=== PATIENT | male | born 1985 | race Caucasian/White ===

== ENCOUNTER 2022-09-14 05:47 | Emergency (ER) | payer MEDICAID, SELFPAY ==
--- NOTE | 2022-09-14 | ECG_ITS ---
Test Reason : chest pain Blood Pressure : / mmHG Vent. Rate : 103 BPM Atrial Rate : 103 BPM P-R Int : 140 ms QRS Dur : 116 ms QT Int : 342 ms P-R-T Axes : 018 012 072 degrees QTc Int : 448 ms Poor data quality, interpretation may be adversely affected Sinus tachycardia Minimal voltage criteria for LVH, may be normal variant ( Yang product ) Nonspecific ST and T wave abnormality Abnormal ECG When compared with ECG of 22-JAN-2013 19:37, Questionable change in QRS duration Referred By: Generic ED Physician Electronically Signed By:CARMEN DAVIS
--- NOTE | ~2022-09-14 | XR_ITS ---
EXAMINATION: XR CHEST CLINICAL INFORMATION: Chest pain COMPARISON: January 22, 2013 and January 30, 2012 TECHNIQUE: 2 views of the chest were obtained. FINDINGS: No significant abnormality is noted involving the heart, lungs, mediastinum, bony thorax or soft tissues. XR/XR chest 2V IMPRESSION: No acute disease.
[2022-09-14 05:51] VITALS: BP 191/116; PULSE 120; RESP 18; TEMP 36.6; O2SAT 98; BMI 33.0
[2022-09-14 06:08] VITALS: BP 176/105; PULSE 107; RESP 17; O2SAT 98
[2022-09-14 06:18] VITALS: BP 176/105; PULSE 105
[2022-09-14] MEDS: Nitroglycerin 2 % Oint 1 GM Packet 1 INCH TRANSDERMA (06:18)
--- NOTE | 2022-09-14 06:21 | PC.NURSE ---
Assumed care of pt. Pt ambulated under own power. Pt sts hx of untreated HTN, has had intermittent CP L anterior chest x 24 hours, and associated headaches. Sts came in this am due to inability to tolerate pain in chest and head. Denies other medical history,. Ordered medication administered, will reevaluate per protocols.
[2022-09-14 06:23] LABS: Hematocrit 47.7 % (42.0-52.0); Hemoglobin 16.4 g/dl (14.0-18.0); Mean Corpuscular HGB Conc 34.4 g/dl (31.0-36.0); Mean Corpuscular Hemoglobin 26.6 pg (27.0-33.0); Mean Corpuscular Volume 77.3 fL (80.0-98.0); Mean Platelet Volume 10.4 fL (9.4-12.4); Platelet Count 213 X10*3/uL (160-400); Red Blood Count 6.17 X10*6/uL (4.60-5.80); Red Cell Distribution Width 13.9 % (11.0-16.0); White Blood Count 7.2 X10*3/uL (4.8-10.8)
[2022-09-14 06:38] LABS: Alanine Aminotransferase 27 U/L (0-40); Albumin Level 4.1 g/dL (3.5-5.0); Alkaline Phosphatase 83 U/L (39-117); Anion Gap 18 (12-20); Aspartate Amino Transferase 21 U/L (5-37); Bilirubin Total 1.1 mg/dL (0.0-1.0); Blood Urea Nitrogen 9 mg/dL (9-16); Carbon Dioxide 22 mmol/L (22-29); Chloride 101 mmol/L (96-108); Creatinine Clr Calc Pharmacy 135.9; Estimated Glomerular Filt Rate > 60; Glucose Random 86 mg/dL (60-115); Potassium 2.9 mmol/L (3.3-5.1); Sodium 138 mmol/L (135-145); Total Protein 7.8 g/dL (6.5-8.0)
[2022-09-14 06:44] LABS: Troponin-I High Sensitivity 31.7 ng/L (<3.5-35.0)
--- NOTE | 2022-09-14 06:55 | PC.NURSE ---
Pt stating pain continuing to diminish with current medication.
--- NOTE | 2022-09-14 07:28 | ED_ITS ---
HPI - Chest Pain General Chief Complaint: Chest Pain Stated Complaint: Chest Discomfort Time Seen by Provider: 09/14/22 06:27 Source: patient Mode of arrival: ambulatory Limitations: no limitations History of Present Illness HPI narrative: Patient is a 36-year-old male with history of HTN, not currently on medication, presenting with complaint of chest and epigastric pain and nausea since midnight. Was awake at the time, pain did not wake him from sleep. Reports pain increased when he laid down. did not eat dinner last night. Also reports sour taste in mouth. Complains of nausea but denies vomiting. Denies diarrhea or constipation. Denies shortness of breath. Denies cough or recent fevers. Denies dizziness, lightheadedness, syncope. States pain was initially 7/10, is currently 5/10 after having nitro paste applied in the ED prior to this assessment. Denies any bloody or dark, tarry stools. Reports tingling to fingers of left hand but denies left arm pain. Denies any calf pain or sw elling, denies pedal edema. is supposed to be on medication for his blood pressure but ran out several months ago and did not follow up with PCP for refill. MD complaint: chest pain Pertinent past history: other (HTN) Onset (ago): hour(s) Timing of current episode: constant Prior episodes: No Onset: during rest Pain location: substernal and epigastric Pain radiation: none Pain scale (0-10): 5 Quality: burning Relieving factors: sitting upright Exacerbating factors: supine Context: non compliance with medication Associated symptoms: nausea Treatment prior to arrival: none Related Data Allergies Allergy/AdvReac Type Severity Reaction Status Date / Time Crustaceans Allergy Unknown EYES GET Uncoded 09/14/22 06:33 RED Review of Systems Review of Systems: As per HPI. Yes all other systems are reviewed and are negative Constitutional: Constitutional: Reports as per HPI [facility] Social History Social History Alcohol intake: never Smoked in Last 30 Days: No Use of substances other than those prescribed or required for medical reasons: No Advance Directives: No Advance Directives Information Provided: Yes Physical Exam Vital Signs: Vital Signs: Last Vital Signs Temp 98.7 F 09/14/22 10:33 Pulse 91 09/14/22 13:33 Resp 12 09/14/22 13:33 BP 111/64 09/14/22 13:33 Pulse Ox 96 09/14/22 13:33 O2 Del Method Room Air 09/14/22 13:33 BMI result Body Mass Index 33.0 Vital signs have been reviewed and appear to be correct. Blood pressure 176/1 05. Heart rate slightly tachycardic. Respiratory rate normal. Temperature normal. Oxygen saturation normal. Const: General: cooperative and no acute distress Orientation/consciousness: oriented to person, oriented to place, oriented to time and patient oriented x3 Limitations: no limitations HEENT: Head: Yes normocephalic and Yes atraumatic Ears: external ears normal General nose exam: Normal external nose present Face and sinus: Yes face symmetric Mouth: oropharynx normal and moist mucous membranes Throat: Yes uvula midline Eyes: Pupils: Equal, round and reactive pupils present Neck: Neck: Yes normal visual inspection and Yes supple Resp: Effort & Inspection: normal respiratory effort and able to speak in complete sentences Auscultation: clear to auscultation bilaterally Cardio: Rate: regular rate Rhythm: regular rhythm Heart sounds: S1 normal heart sound present and S2 normal heart sound present GI: Inspection: Yes normal to inspection and Yes obesity Palpation (GI): Soft to palpation, Tenderness to palpation present (GI) in the epigastrum (mild), no guarding and No Rebound tenderness present Auscultation: normoactive bowel sounds : General: Yes no CVA tenderness Back/Spine/Pelvis: Back: no CVA tenderness Skin: General skin exam: elasticity normal and turgor normal Neuro: General: oriented to person, oriented to place, oriented to time, lilliam ent oriented x3, moves all extremities, no focal motor deficits and CN's II-XI intact bilaterally Cranial nerves: Yes Equal, round and reactive pupils present Cognition (Neuro): normal cognition Extrem: General: Yes full ROM, Yes no pedal edema and Yes no calf tenderness Psych: Mental Status: mental status grossly normal Affect: normal affect Thought process: Normal thought process present Course Course Course Narrative: 11:42 Delta trop negative. Low risk HEART score of 3. BP has improved after nitro paste. Chest x-ray unremarkable. D-dimer order was not placed will obtain now. 13:26 D-dimer negative. No indication for CTA. Feel patient is stable for discharge home at this time. Discussed with patient the importance of compliance with his medication for hypertension and instructed him to follow up with his PCP within two days. All results discussed and all questions answered. Return precautions discussed at bedside, patient is agreeable with plan of care. Medications Administered Discontinued Medications Generic Name Dose Route Start Last Admin Trade Name Xavi PRN Reason Stop Dose Admin Al Hydroxide/Mg Hydroxide 30 ml 09/14/22 07:42 09/14/22 08:36 Magnesium Hydrox/Alum Hydrox 30 Ml Oral.Susp PO 09/14/22 07:43 30 ml ONCE ONE Administration Lidocaine HCl 5 ml 09/14/22 07:42 09/14/22 08:36 Lidocaine Hcl Viscous 2 % 15 Ml Solution MUCOUS MEM 09/14/22 07:43 5 ml ONCE ONE Administration Nitroglycerin 1 inch 09/14/22 06:01 09/14/22 06:18 Nitroglycerin 2 % Oint 1 Gm Packet TRANSDERMA 09/14/22 06:02 1 inch ONCE ONE Administration Potassium Chloride 40 meq 09/14/22 07:42 09/14/22 08:36 Potassium Chloride Er 20 Meq Tab.Er.Prt PO 09/14/22 07:43 40 meq ONCE ONE Administration Medical Decision Making Medical Decision Making MDM Narrative: Patient is a 36-year-old male with history of HTN, not currently on medication, presenting with complaint of chest and epigastric pain and nausea since midnight. On exam patient is awake, A+Ox3, hypertensive with BP slightly improved after nitro paste, mild tachycardia, VS otherwise WNL, afebrile, LS CTA throughout, RRR, mild epigastric tenderness, abdomen otherwise soft and nontender, no CVA tenderness. Patient reports pain decreased to 5/10 from 7/10 after nitro paste ordered prior to this provider's arrival. EKG shows sinus tachycardia, rate 103 bpm, nonspecific ST and T wave abnormalities. Initial troponin 31.7, will obtain delta trop. Patient also noted to have potassium of 2.9, will replace PO. Will also medicate with GI cocktail for epigastric pain. Cannot PERC out, Wells 4.5 so will obtain D-dimer. HEART score of 3. Concern for ACS/NSTEMI vs GERD or PUD, PE, musculoskeletal. Less likely esophageal rupture, pna, pneumothorax. Unlikely aortic dissection, pe ricarditis/endocarditis. Please refer to course for remaining clinical decision making. Differential Diagnosis Differential Diagnoses: The differential diagnosis associated with the presentation includes As above. Admission/Observation Consideration of admission/observation: Escalation of care including admission/observation considered Considered since arrival given complaint of chest pain. Lab Data MDM Lab Attestation statement: I reviewed the patient's lab results. 09/14/22 06:10 09/14/22 06:10 Labs: Lab Results 09/14/22 09/14/22 09/14/22 Range/Units 06:10 06:10 06:10 WBC 7.2 (4.8-10.8) X10*3/uL RBC 6.17 H (4.60-5.80) X10*6/uL Hgb 16.4 (14.0-18.0) g/dl Hct 47.7 (42.0-52.0) % MCV 77.3 L (80.0-98.0) fL MCH 26.6 L (27.0-33.0) pg MCHC 34.4 (31.0-36.0) g/dl RDW 13.9 (11.0-16.0) % Plt Count 213 (160-400) X10*3/uL MPV 10.4 (9.4-12.4) fL Absolute Nucleated RBC 0.000 (0.0-0.012) X10*3/uL Nucleated RBC % (auto) 0.0 (0.0-0.2) /100WBC D-Dimer High Sensitivty NG/ML Sodium 138 (135-145) mmol/L Potassium 2.9 L (3.3-5.1) mmol/L Chloride 101 (96-108) mmol/L Carbon Dioxide 22 (22-29) mmol/L Anion Gap 18 (12-20) BUN 9 (9-16) mg/dL Creatinine 0.90 (0.5-1.4) mg/dL Estim Creat Clear Calc 135.9 Estimated GFR > 60 Random Glucose 86 (60-115) mg/dL Calcium 10.0 (8.4-10.2) mg/dL Total Bilirubin 1.1 H (0.0-1.0) mg/dL AST 21 (5-37) U/L ALT 27 (0-40) U/L Alkaline Phosphatase 83 (39-117) U/L Troponin I High Sens 31.7 (<3.5-35.0) ng/L Total Protein 7.8 (6.5-8.0) g/dL Albumin 4.1 (3.5-5.0) g/dL 09/14/22 09/14/22 Range/Units 10:31 13:00 WBC (4.8-10.8) X10*3/uL RBC (4.60-5.80) X10*6/uL Hgb (14.0-18.0) g/dl Hct (42.0-52.0) % MCV (80.0-98.0) fL MCH (27.0-33.0) pg MCHC (31.0-36.0) g/dl RDW (11.0-16.0) % Plt Count (160-400) X10*3/uL MPV (9.4-12.4) fL Absolute Nucleated RBC (0.0-0.012) X10*3/uL Nucleated RBC % (auto) (0.0-0.2) /100WBC D-Dimer High Sensitivty 162 NG/ML Sodium (135-145) mmol/L Potassium (3.3-5.1) mmol/L Chloride (96-108) mmol/L Carbon Dioxide (22-29) mmol/L Anion Gap (12-20) BUN (9-16) mg/dL Creatinine (0.5-1.4) mg/dL Estim Creat Clear Calc Estimated GFR Random Glucose (60-115) mg/dL Calcium (8.4-10.2) mg/dL Total Bilirubin (0.0-1.0) mg/dL AST (5-37) U/L ALT (0-40) U/L Alkaline Phosphatase (39-117) U/L Troponin I High Sens 26.7 (<3.5-35.0) ng/L Total Protein (6.5-8.0) g/dL Albumin (3.5-5.0) g/dL Independent Interpretation I performed an independent interpretation of an: Plain X-Ray Interpretation: I independently reviewed the x-ray and agree with the radiologist's interpretation. Radiology Impression Discussion of test interpretation with radiology: I have reviewed the rad iologist's reading. Radiologist Impression: XR/XR chest 2V IMPRESSION: No acute disease. External Record Review External record reviewed: Inpatient record, Office record and Outpatient record Prescription Management I considered prescription management with: Pain Medication Chronic Conditions Patient?s care impacted by: Hypertension Scores Heart Score History: -0- slightly suspicious ECG: -1- non specific repolarization disturbance Age: -0- < or = 45 Risk factory: -1- 1 or 2 risk factors Troponin: -1- >1 - <3x normal limit Score: 3 Risk: 1.7% Wells PE Clinical symptoms of DVT: 3 Heart rate > 100 p/min: 1.5 Score: 4.5 2-tier Risk: likely risk (17-53%) Discharge Plan Discharge Clinical Impression: Chest pain, Hypertension Patient Disposition: Home, Self-Care Instructions: Chest Pain (DC), Hypertension (ED) Additional Instructions: You were evaluated in the emergency department today for chest pain. Your evaluation has shown no signs of medical conditions requiring emergent intervention at this time, however we recommend that you follow-up with your primary care physician or your regulatory affairs coordinator as soon as possible for further testing as an outpatient. Please schedule an appointment for follow-up with your primary care physician as soon as possible. Return to the emergency department if you experience worsening or uncontrolled chest pain, shortness of breath, lightheadedness, feeling faint, loss of consciousness, nausea, vomiting, or any other concerning symptoms.
[2022-09-14 07:49] VITALS: BP 153/101; PULSE 93; RESP 13; TEMP 37.3; O2SAT 95
[2022-09-14] MEDS: Lidocaine HCl Viscous 2 % 15 ML SOLUTION 5 ML MUCOUS MEM (08:36)
[2022-09-14] MEDS: Magnesium Hydrox/Alum Hydrox 30 ML ORAL.SUSP PO (08:36)
[2022-09-14] MEDS: Potassium Chloride ER 20 MEQ TAB.ER.PRT 40 MEQ PO (08:36)
[2022-09-14 10:33] VITALS: BP 149/101; PULSE 93; RESP 20; TEMP 37.1; O2SAT 94
[2022-09-14 11:32] LABS: Troponin-I High Sensitivity 26.7 ng/L (<3.5-35.0)
[2022-09-14 13:16] LABS: D Dimer High Sensitivity 162 NG/ML
[2022-09-14 13:33] VITALS: BP 111/64; PULSE 91; RESP 12; O2SAT 96
== END 2022-09-14 13:37 | disposition home or self-care (01) ==
PROVIDERS: Registered Nurse Emergency; Emergency Provider Emergency Medicine; PCP Nurse Practitioner Family
DX: R07.9 Chest pain, unspecified (principal); I10 Essential (primary) hypertension; R00.0 Tachycardia, unspecified
CPT/HCPCS: 36415; 71046; 80053; 84484; 85027; 85379; 93005; 99283; 99285

== ENCOUNTER 2022-09-30 21:52 | Emergency (ER) | payer MEDICAID, SELFPAY ==
[2022-09-30 22:11] VITALS: BMI 40.2
--- NOTE | 2022-09-30 22:30 | PC.NURSE ---
pt c/o chest pain that radiates to L arm, lower abdominal pain, and headache, n/v, dizziness that started around 12p-1p denies diarrhea/constipation no sob no respiratory distress HR slightly elevated at 107 L arm pain 8 aox4 steady gait
--- NOTE | 2022-09-30 23:05 | PC.NURSE ---
continuous library monitor placed
--- NOTE | 2022-09-30 23:10 | ED.CHESTPAIN ---
HPI - Chest Pain General Chief Complaint: Chest Pain Stated Complaint: Chest pain Time Seen by Provider: 09/30/22 22:28 Source: patient Mode of arrival: ambulatory History of Present Illness HPI narrative: 36-year-old male with known underlying hypertension and states he does not take medication because he is afraid of pills. Patient reports that he was driving today when he began experiencing left-sided chest discomfort that has been ongoing until presentation this evening. That has been associated with chills, nausea, vomiting and he states he is never felt this way before. He otherwise denies any alcohol, drugs. Related Data Allergies Allergy/AdvReac Type Severity Reaction Status Date / Time Crustaceans Allergy Unknown EYES GET Uncoded 09/14/22 06:33 RED Review of Systems Review of Systems: Pertinent positives and negatives as stated in [facility] Past Medical History Source: nursing notes reviewed Social History Social History Alcohol intake: never Smoked in Last 30 Days: No Use of substances other than those prescribed or required for medical reasons: No Advance Directives: No Advance Directives Information Provided: Yes Physical Exam Vital Signs: Vital Signs: Last Vital Signs Temp 98.0 F 10/01/22 03:51 Pulse 90 10/01/22 04:00 Resp 17 10/01/22 04:00 BP 131/83 10/01/22 04:00 Pulse Ox 100 10/01/22 04:00 O2 Del Method Room Air 10/01/22 04:00 BMI result Body Mass Index 40.2 VITAL SIGNS: Reviewed. GENERAL: Elevated BMI, Well developed, well nourished, in no acute distress. HEAD: Normocephalic/atraumatic EYES: PERRLA, EOMI EARS: Ext canals without abnormality NOSE: Nares patent bilateral OROPHARYNX: no oral lesions noted, posterior pharynx clear NECK: Supple, no adenopathy LUNGS: Normal breath sounds. No adventitious sounds or accessory muscle use. SpO2<96> CARDIOVASCULAR: Regular rate and rhythm without noted murmurs ABDOMEN: Soft, non-tender, non-distended with bowel sounds. MUSCULOSKELETAL: No tenderness, deformities, or effusions noted on gross inspection. EXTREMITIES: No cyanosis, clubbing or edema. SKIN: Inspection of the skin reveals no rashes NEUROLOGIC: Alert and oriented x 4. Strength and sensation to light touch were grossly intact x 4. Medications Administered Discontinued Medications Generic Name Dose Route Start Last Admin Trade Name Xavi PRN Reason Stop Dose Admin Piperacillin Sod/Tazobactam 50 mls @ 100 mls/hr 10/01/22 03:05 10/01/22 04:00 Sod 3.375 gm/ Sodium Chloride IV 10/01/22 03:34 Infused ONCE ONE Infusion Sodium Chloride 500 mls @ 999 mls/hr 10/01/22 03:30 10/01/22 04:11 Ns IV 10/01/22 04:00 Infused .Q31M HANNAH Infusion Ketorolac Tromethamine 15 mg 10/01/22 03:11 10/01/22 03:27 Ketorolac Tromethamine 30 Mg/Ml Vial IVPUSH 10/01/22 03:12 15 mg ONCE ONE Administration Labetalol HCl 5 mg 10/01/22 03:30 10/01/22 03:36 Labetalol Hcl 100 Mg/20 Ml Vial IVPUSH 10/01/22 03:31 5 mg ONCE ONE Administration Medical Decision Making Medical Decision Making MDM Narrative: 0015: 36-year-old male with history and clinical presentation, DDX: Cholecystitis, gastritis, pancreatitis, acid reflux, less likely felt to be pneumonia or ACS. Her been no further incident of nausea, vomiting and patient continues to endorse chest pain, or remains tachycardic. 0225: Have reviewed all investigations and he hematologic indices are negative for any leukocytosis or left shift there is no anemia. Chemistries have been significantly delayed and on finally receiving there is a noted bump in the ALT in patient has been here previously for chest pain. Will repeat 2nd troponin, on re-evaluation patient continues to endorse chest pain but on abdominal exam patient is reporting epigastric/right upper quadrant discomfort. Ultrasound is pending. 0305: On review of ultrasound it appears that there was a large stone and given patient's persistent pain, tachycardia will proceed with lactic acid blood cultures to include initiating 1 dose of Zosyn and Toradol as well as labetalol for patient's blood pressure.. I re-evaluated the patient and given the fact that the ultrasound although being significant for cholelithiasis no evidence to suggest cholecystitis and patient reports feeling much better and more comfortable. At this time I think that he can be discharged home with a referral to follow-up with general surgery for elective removal of his gallbladder. I discussed the findings with the patient at bedside as well as the need to follow-up with his primary care provider for blood pressure medication. Differential Diagnosis Please see the discussion above Admission/Observation Consideration of admission/observation: Escalation of care including admission/observation considered Consult Healthcare Provider Management of the patient was discussed with: Machine Helper Please see the discussion above Lab Data Please see the discussion above 09/30/22 22:23 09/30/22 22: Labs: Lab Results 09/30/22 09/30/22 09/30/22 Range/Units 22:23 22: 22: WBC 7.0 (4.8-10.8) X10*3/uL RBC 5.45 (4.60-5.80) X10*6/uL Hgb 14.5 (14.0-18.0) g/dl Hct 42.5 (42.0-52.0) % MCV 78.0 L (80.0-98.0) fL MCH 26.6 L (27.0-33.0) pg MCHC 34.1 (31.0-36.0) g/dl RDW 15.0 (11.0-16.0) % Plt Count 247 (160-400) X10*3/uL MPV 10.1 (9.4-12.4) fL Absolute Nucleated RBC 0.000 (0.0-0.012) X10*3/uL Nucleated RBC % (auto) 0.0 (0.0-0.2) /100WBC Sodium 140 (135-145) mmol/L Potassium 3.3 (3.3-5.1) mmol/L Chloride 108 (96-108) mmol/L Carbon Dioxide 20 L (22-29) mmol/L Anion Gap 15 (12-20) BUN 11 (9-16) mg/dL Creatinine 0.87 (0.5-1.4) mg/dL Estim Creat Clear Calc 155.5 Estimated GFR > 60 Random Glucose 98 (60-115) mg/dL Lactic Acid (0.5-2.0) mmol/L Calcium 10.1 (8.4-10.2) mg/dL Total Bilirubin 0.5 (0.0-1.0) mg/dL AST 30 (5-37) U/L ALT 44 H (0-40) U/L Alkaline Phosphatase 88 (39-117) U/L Troponin I High Sens 16.7 (<3.5-35.0) ng/L Total Protein 7.2 (6.5-8.0) g/dL Albumin 3.9 (3.5-5.0) g/dL Lipase 19 (8-78) U/L 10/01/22 10/01/22 Range/Units 02:40 03:25 WBC (4.8-10.8) X10*3/uL RBC (4.60-5.80) X10*6/uL Hgb (14.0-18.0) g/dl Hct (42.0-52.0) % MCV (80.0-98.0) fL MCH (27.0-33.0) pg MCHC (31.0-36.0) g/dl RDW (11.0-16.0) % Plt Count (160-400) X10*3/uL MPV (9.4-12.4) fL Absolute Nucleated RBC (0.0-0.012) X10*3/uL Nucleated RBC % (auto) (0.0-0.2) /100WBC Sodium (135-145) mmol/L Potassium (3.3-5.1) mmol/L Chloride (96-108) mmol/L Carbon Dioxide (22-29) mmol/L Anion Gap (12-20) BUN (9-16) mg/dL Creatinine (0.5-1.4) mg/dL Estim Creat Clear Calc Estimated GFR Random Glucose (60-115) mg/dL Lactic Acid 0.7 (0.5-2.0) mmol/L Calcium (8.4-10.2) mg/dL Total Bilirubin (0.0-1.0) mg/dL AST (5-37) U/L ALT (0-40) U/L Alkaline Phosphatase (39-117) U/L Troponin I High Sens 16.6 (<3.5-35.0) ng/L Total Protein (6.5-8.0) g/dL Albumin (3.5-5.0) g/dL Lipase (8-78) U/L Independent Interpretation I performed an independent interpretation of an: EKG Interpretation: Normal sinus rhythm, HR-99, no STEMI, LVH is present, MT/QTC are within normal limits, QRS-110 Radiology Impression Radiologist Impression: Large stone noted, my interpretation otherwise is in agreement with radiology's interpretation. External Record Review External record reviewed: Outpatient record and Prior outpatient labs Discharge Plan Discharge Clinical Impression: Biliary colic, Hypertension Patient Disposition: Home, Self-Care Instructions: Biliary Colic (ED), DASH Eating Plan (ED), Hypertension (ED) Additional Instructions: 1. Se le amaral proporcionado brenna remisi?n para el seguimiento con cirug?a general para los c?lculos en la ves?cula biliar. 2. Hannah un seguimiento con turner proveedor de atenci?n primaria para comenzar a shahriar medicamentos para turner presi?n arterial. Regrese a la damari de emergencias si los s?ntomas empeoran. 1. You have been provided a referral to follow-up with general surgery for the stones in your gallbladder. 2. Please follow-up with your primary care provider to get started on medication for your blood pressure. Return to the ER for any worsening symptoms. Referrals: Gayatri Hamilton NP [Primary Care Provider] - Carlos Epstein MD [Physician] - (Cholelithiasis) Print Language: Hong Konger
[2022-09-30 23:25] VITALS: BP 155/106; PULSE 106; RESP 16; TEMP 36.8; O2SAT 96
--- NOTE | 2022-09-30 23:29 | PC.NURSE ---
lower abd pain burning sensation L ankle swelling; pt had bandage wrapped around it hospital socks placed on pt's feet and changed into hospital attire ankle bandage removed for provider to assess
--- NOTE | 2022-10-01 03:21 | PC.NURSE ---
administered 15 mg ketorolac IV push for abd, chest and L arm pain
[2022-10-01 03:22] VITALS: BP 161/115; PULSE 82; RESP 24; TEMP 36.6; O2SAT 97
[2022-10-01 03:51] VITALS: BP 149/97; PULSE 77; RESP 16; TEMP 36.7; O2SAT 97
[2022-10-01 04:00] VITALS: BP 131/83; PULSE 90; RESP 17; O2SAT 100
--- NOTE | 2022-10-01 05:40 | PC.NURSE ---
Discharge instructions given and explained to pt No apparent distress, no respiratory distress, sob [id number] All of pt's questions answered Ambulates safely and independently IV cath intact upon removal
== END 2022-10-01 05:34 | disposition home or self-care (01) ==
PROVIDERS: Emergency Provider Student in an Organized Health Care Education/Training Program; PCP Nurse Practitioner Family
DX: K80.50 Calculus of bile duct without cholangitis or cholecystitis without obstruction (principal); R07.89 Other chest pain; R10.10 Upper abdominal pain, unspecified; I10 Essential (primary) hypertension; Z79.899 Other long term (current) drug therapy
CPT/HCPCS: 36415; 76705; 80053; 83605; 83690; 84484; 85027; 87040; 93005; 96365; 96375; 99284; 99285; J1885; J2543

== ENCOUNTER 2022-10-06 01:16 | Emergency (ER) | payer MEDICAID, SELFPAY ==
--- NOTE | 2022-10-06 | ECG_ITS ---
Test Reason : CHESTPAIN Blood Pressure : / mmHG Vent. Rate : 102 BPM Atrial Rate : 102 BPM P-R Int : 152 ms QRS Dur : 106 ms QT Int : 350 ms P-R-T Axes : 029 -06 124 degrees QTc Int : 456 ms Sinus tachycardia Left ventricular hypertrophy with repolarization abnormality ( [place] product ) Abnormal ECG When compared with ECG of 30-SEP-2022 22:13, Nonspecific T wave abnormality no longer evident in Inferior leads Referred By: Generic ED Physician Electronically Signed By:AURY SHEN MD
[2022-10-06 01:19] VITALS: BP 177/107; PULSE 107; RESP 18; TEMP 36.8; O2SAT 97; BMI 39.7
--- NOTE | 2022-10-06 01:21 | MHC.EDTECH ---
EKG IS DELAYED DUE TO PT IN TRIAGE
--- NOTE | 2022-10-06 01:39 | ED_ITS ---
HPI - Chest Pain General Chief Complaint: Chest Pain Stated Complaint: Chest Pain Time Seen by Provider: 10/06/22 01:37 Source: patient Mode of arrival: ambulatory History of Present Illness HPI narrative: 36-year-old male who presents again for left-sided chest pain after taking a shower with associated nausea. Patient states that when he exited the shower he began to feel warm and then developed chest pain and also endorses a dry cough. Related Data Previous Rx's Medication Instructions Recorded hydrochlorothiazide 25 mg tablet 25 mg PO DAILY #30 tabs 10/06/22 omeprazole 40 mg capsule,delayed 40 mg PO DAILY #30 caps 10/06/22 release Allergies Allergy/AdvReac Type Severity Reaction Status Date / Time Crustaceans Allergy Unknown EYES GET Uncoded 09/14/22 06:33 RED Review of Systems Review of Systems: Pertinent positives and negatives as stated in the [facility] Past Medical History Source: nursing notes reviewed Social History Social History Alcohol intake: never Smoked in Last 30 Days: No Use of substances other than those prescribed or required for medical reasons: No Advance Directives: No Advance Directives Information Provided: Yes Physical Exam Vital Signs: Vital Signs: Last Vital Signs Temp 99.4 F 10/06/22 04:00 Pulse 86 10/06/22 04:00 Resp 16 10/06/22 04:00 BP 138/81 10/06/22 04:00 Pulse Ox 95 10/06/22 04:00 O2 Del Method Room Air 10/06/22 04:00 BMI result Body Mass Index 39.7 VITAL SIGNS: Reviewed. GENERAL: Elevated BMI, Well developed, well nourished, in no acute distress. HEAD: Normocephalic/atraumatic EYES: PERRLA, EOMI EARS: Ext canals without abnormality NOSE: Nares patent bilateral OROPHARYNX: no oral lesions noted, posterior pharynx clear NECK: Supple, no adenopathy LUNGS: Normal breath sounds. No adventitious sounds or accessory muscle use. SpO2<98> CARDIOVASCULAR: Regular rate and rhythm without noted murmurs, symmetrical pulses ABDOMEN: Soft, non-tender, non-distended with bowel sounds. MUSCULOSKELETAL: No tenderness, deformities, or effusions noted on gross inspection. EXTREMITIES: No cyanosis, clubbing or edema. SKIN: Inspection of the skin reveals no rashes NEUROLOGIC: Alert and oriented x 4. Strength and sensation to light touch were grossly intact x 4. Medications Administered Discontinued Medications Generic Name Dose Route Start Last Admin Trade Name Xavi PRN Reason Stop Dose Admin Amlodipine Besylate 10 mg 10/06/22 02:20 10/06/22 02:38 Amlodipine Besylate 10 Mg Tablet PO 10/06/22 02:21 10 mg ONCE ONE Administration Protocol Lidocaine/Diphenhydr/Alum/Mg/Simeth 10 ml 10/06/22 03:34 10/06/22 04:02 Mag&Al/Sim/Diphenhyd/Lidocaine 10 Ml Oral.Susp PO 10/06/22 03:35 10 ml ONCE ONE Administration Protocol Potassium Chloride 60 meq 10/06/22 02:20 10/06/22 02:38 Potassium Chloride Er 20 Meq Tab.Er.Prt PO 10/06/22 02:21 60 meq ONCE ONE Administration Sucralfate 1 gm 10/06/22 03:34 10/06/22 04:02 Sucralfate Oral Suspension 1 Gm/10 Ml Oral.Susp PO 10/06/22 03:35 1 gm ONCE ONE Administration Medical Decision Making Medical Decision Making MDM Narrative: 36-year-old male in whom I suspect is experiencing intermittent biliary colic as this is the 3rd visit here for chest pain with detectable troponins but EKG does not demonstrate any acute changes when compared to prior and no STEMI. Patient continues to say that he has chest pain, on my previous evaluation on 09/30 patient was noted to have a large gallstone without evidence of cholecystitis, and again at this visit I do not suspect cholecystitis. Patient informed me that he has not reached out to general surgery to arrange for an appointment for elective cholecystectomy. Her reviewed all investigations this visit and once again hematologic indices are grossly within normal limits consistent with the unlikely event of an infectious etiology. Patient is noted to have a low potassium which was repleted with 60 mEq of oral potassium, this is not the 1st time that he has presented with low potassium values. His chemistries are otherwise grossly within normal limits, troponin levels continue to be detectable but flat. Patient is noted to be initially hypertensive on arrival and blood pressure has improved while in the emergency room. He has made an attempt to reach out to a primary care provider a will not get an appointment for 3-4 weeks. 0444: On re-evaluation patient is feeling much improved and I suspect a component of his discomfort is secondary to acid reflux as well as the biliary colic. I started patient on antihypertensive. Differential Diagnosis Differential Diagnoses: The differential diagnosis associated with the presentation includes Please see the discussion above Admission/Observation Consideration of admission/observation: Escalation of care including admission/observation considered If ACS would admit Lab Data MDM Lab Attestation statement: I reviewed the patient's lab results. Please see the discussion above 10/06/22 01:35 10/06/22 01:35 Labs: Lab Results 10/06/22 10/06/22 10/06/22 Range/Units 01:35 01:35 01:35 WBC 7.9 (4.8-10.8) X10*3/uL RBC 5.65 (4.60-5.80) X10*6/uL Hgb 15.3 (14.0-18.0) g/dl Hct 44.4 (42.0-52.0) % MCV 78.6 L (80.0-98.0) fL MCH 27.1 (27.0-33.0) pg MCHC 34.5 (31.0-36.0) g/dl RDW 15.1 (11.0-16.0) % Plt Count 267 (160-400) X10*3/uL MPV 9.4 (9.4-12.4) fL Immature Gran % (Auto) 0.3 (0.0-0.4) % Neut % (Auto) 68.9 (45-73) % Lymph % (Auto) 23.0 (20-40) % [place] % (Auto) 5.8 (2-11) % Eos % (Auto) 1.4 (0-4) % Baso % (Auto) 0.6 (0-2) % Lymph # (Auto) 1.8 (1.2-4.9) X10*3/uL [place] # (Auto) 0.5 (0.1-1.2) X10*3/uL Eos # (Auto) 0.1 (0.0-0.4) X10*3/uL Baso # (Auto) 0.1 (0.0-0.2) X10*3/uL Abs Immat Gran (auto) 0.02 (0.00-0.03) X10*3/uL Absolute Neuts (auto) 5.4 (2.0-8.3) x10*3/uL Absolute Nucleated RBC 0.000 (0.0-0.012) X10*3/uL Nucleated RBC % (auto) 0.0 (0.0-0.2) /100WBC Sodium 142 (135-145) mmol/L Potassium 2.8 L (3.3-5.1) mmol/L Chloride 108 (96-108) mmol/L Carbon Dioxide 21 L (22-29) mmol/L Anion Gap 16 (12-20) BUN 11 (9-16) mg/dL Creatinine 0.85 (0.5-1.4) mg/dL Estim Creat Clear Calc 158.2 Estimated GFR > 60 Random Glucose 89 (60-115) mg/dL Calcium 10.1 (8.4-10.2) mg/dL Total Bilirubin 0.9 (0.0-1.0) mg/dL AST 22 (5-37) U/L ALT 24 (0-40) U/L Alkaline Phosphatase 84 (39-117) U/L Troponin I High Sens 22.0 (<3.5-35.0) ng/L Total Protein 7.4 (6.5-8.0) g/dL Albumin 4.1 (3.5-5.0) g/dL TSH 2.19 (0.32-4.0) uIU/mL Urine Opiates Screen (Not Detect) Urine Fentanyl Screen (Not Detect) Ur Barbiturates Screen (Not Detect) Ur Phencyclidine Scrn (Not Detect) Ur Amphetamines Screen (Not Detect) U Benzodiazepines Scrn (Not Detect) Urine Cocaine Screen (Not Detect) U Marijuana (THC) Screen (Not Detect) 10/06/22 Range/Units 04:24 WBC (4.8-10.8) X10*3/uL RBC (4.60-5.80) X10*6/uL Hgb (14.0-18.0) g/dl Hct (42.0-52.0) % MCV (80.0-98.0) fL MCH (27.0-33.0) pg MCHC (31.0-36.0) g/dl RDW (11.0-16.0) % Plt Count (160-400) X10*3/uL MPV (9.4-12.4) fL Immature Gran % (Auto) (0.0-0.4) % Neut % (Auto) (45-73) % Lymph % (Auto) (20-40) % [place] % (Auto) (2-11) % Eos % (Auto) (0-4) % Baso % (Auto) (0-2) % Lymph # (Auto) (1.2-4.9) X10*3/uL [place] # (Auto) (0.1-1.2) X10*3/uL Eos # (Auto) (0.0-0.4) X10*3/uL Baso # (Auto) (0.0-0.2) X10*3/uL Abs Immat Gran (auto) (0.00-0.03) X10*3/uL Absolute Neuts (auto) (2.0-8.3) x10*3/uL Absolute Nucleated RBC (0.0-0.012) X10*3/uL Nucleated RBC % (auto) (0.0-0.2) /100WBC Sodium (135-145) mmol/L Potassium (3.3-5.1) mmol/L Chloride (96-108) mmol/L Carbon Dioxide (22-29) mmol/L Anion Gap (12-20) BUN (9-16) mg/dL Creatinine (0.5-1.4) mg/dL Estim Creat Clear Calc Estimated GFR Random Glucose (60-115) mg/dL Calcium (8.4-10.2) mg/dL Total Bilirubin (0.0-1.0) mg/dL AST (5-37) U/L ALT (0-40) U/L Alkaline Phosphatase (39-117) U/L Troponin I High Sens (<3.5-35.0) ng/L Total Protein (6.5-8.0) g/dL Albumin (3.5-5.0) g/dL TSH (0.32-4.0) uIU/mL Urine Opiates Screen Not Detected (Not Detect) Urine Fentanyl Screen Not Detected (Not Detect) Ur Barbiturates Screen Not Detected (Not Detect) Ur Phencyclidine Scrn Not Detected (Not Detect) Ur Amphetamines Screen Not Detected (Not Detect) U Benzodiazepines Scrn Not Detected (Not Detect) Urine Cocaine Screen Not Detected (Not Detect) U Marijuana (THC) Screen Not Detected (Not Detect) Independent Interpretation I performed an independent interpretation of an: EKG Interpretation: Sinus tachycardia, HR-102, no STEMI, UT/QRS/QTC are within normal limits. There is LVH. External Record Review External record reviewed: Prior outpatient labs Chronic Conditions Patient?s care impacted by: Hypertension Discharge Plan Discharge Clinical Impression: Atypical chest pain, Biliary colic, GERD (gastroesophageal reflux disease) Patient Disposition: Home, Self-Care Instructions: Chest Pain (ED), Biliary Colic (ED), Diet for Stomach Ulcers and Gastritis (ED), Gastroesophageal Reflux Disease (ED) Additional Instructions: 1. Empezar a shahriar la medicaci?n antihipertensiva que le hayan prescrito. 2. Llame a la oficina del cirujano general por la ma?edyta para programar brenna ranjit para la reevaluaci?n. Regrese a la damari de emergencias si los s?ntomas empeoran. 1. Start taking the blood pressure medication that has been prescribed. 2. Please call the office of the general surgeon in the morning to set up an appointment for re-evaluation. Return to the ER for any worsening symptoms. Prescriptions: New hydrochlorothiazide 25 mg tablet 25 mg PO DAILY Qty: 30 0RF omeprazole 40 mg capsule,delayed release(DR/EC) 40 mg PO DAILY Qty: 30 0RF Referrals: Tres Fraire MD [Physician] - (biliary colic) Print Language: [place]
[2022-10-06 01:40] LABS: MANUAL DIFF FLAG NO
[2022-10-06 01:50] LABS: Basophils Absolute Auto 0.1 X10*3/uL (0.0-0.2); Basophils Percent Auto 0.6 % (0-2); Eosinophils Absolute Auto 0.1 X10*3/uL (0.0-0.4); Eosinophils Percent Auto 1.4 % (0-4); Hematocrit 44.4 % (42.0-52.0); Hemoglobin 15.3 g/dl (14.0-18.0); Imm Gran Abs Auto 0.02 X10*3/uL (0.00-0.03); Imm Gran Pct Auto 0.3 % (0.0-0.4); Lymphocytes Absolute Auto 1.8 X10*3/uL (1.2-4.9); Mean Corpuscular HGB Conc 34.5 g/dl (31.0-36.0); Mean Corpuscular Hemoglobin 27.1 pg (27.0-33.0); Mean Corpuscular Volume 78.6 fL (80.0-98.0); Mean Platelet Volume 9.4 fL (9.4-12.4); Monocytes Absolute Auto 0.5 X10*3/uL (0.1-1.2); Monocytes Percent Auto 5.8 % (2-11); Neutrophils Absolute Auto 5.4 x10*3/uL (2.0-8.3); Neutrophils Percent Auto 68.9 % (45-73); Platelet Count 267 X10*3/uL (160-400); Red Blood Count 5.65 X10*6/uL (4.60-5.80); Red Cell Distribution Width 15.1 % (11.0-16.0); White Blood Count 7.9 X10*3/uL (4.8-10.8)
[2022-10-06 01:57] VITALS: BP 147/100; PULSE 92; RESP 16; TEMP 37.3; O2SAT 98
--- NOTE | 2022-10-06 01:58 | PC.NURSE ---
pt a&o, no sign of distress, pt changed into hospital attire placed on bedside monitor. no sign of distress
[2022-10-06 02:08] LABS: Alanine Aminotransferase 24 U/L (0-40); Albumin Level 4.1 g/dL (3.5-5.0); Alkaline Phosphatase 84 U/L (39-117); Anion Gap 16 (12-20); Aspartate Amino Transferase 22 U/L (5-37); Bilirubin Total 0.9 mg/dL (0.0-1.0); Blood Urea Nitrogen 11 mg/dL (9-16); Calcium 10.1 mg/dL (8.4-10.2); Carbon Dioxide 21 mmol/L (22-29); Chloride 108 mmol/L (96-108); Creatinine Clr Calc Pharmacy 158.2; Estimated Glomerular Filt Rate > 60; Glucose Random 89 mg/dL (60-115); Potassium 2.8 mmol/L (3.3-5.1); Sodium 142 mmol/L (135-145); Total Protein 7.4 g/dL (6.5-8.0)
[2022-10-06] MEDS: Potassium Chloride ER 20 MEQ TAB.ER.PRT 60 MEQ PO (02:38)
[2022-10-06] MEDS: amLODIPine Besylate 10 MG TABLET PO (02:38)
--- NOTE | 2022-10-06 02:40 | PC.NURSE ---
Medicated per Mar.
[2022-10-06 03:42] VITALS: BP 137/86; PULSE 88; RESP 16
[2022-10-06 04:00] VITALS: BP 138/81; PULSE 86; RESP 16; TEMP 37.4; O2SAT 95
[2022-10-06] MEDS: Mag&Al/Sim/Diphenhyd/Lidocaine 10 ML ORAL.SUSP PO (04:02)
[2022-10-06] MEDS: Sucralfate Oral Suspension 1 GM/10 ML ORAL.SUSP PO (04:02)
[2022-10-06 04:14] LABS: Thyroid Stimulating Hormone 2.19 uIU/mL (0.32-4.0)
--- NOTE | 2022-10-06 04:14 | PC.NURSE ---
pt denies any chest pain, no sign of distress, Medicated per mar.
[2022-10-06 04:41] LABS: Amphetamine Screen Urine Not Detected (Not Detect); Barbiturates, Urine Not Detected (Not Detect); Benzodiazepines Screen Urine Not Detected (Not Detect); Cannabinoid Screen Urine Not Detected (Not Detect); Cocaine Screen Urine Not Detected (Not Detect); Fentanyl, urine Not Detected (Not Detect); Opiate Screen Urine Not Detected (Not Detect); Phencyclidine Screen Urine Not Detected (Not Detect)
--- NOTE | 2022-10-06 04:54 | PC.NURSE ---
No sign of distress at discharge, Reviewed discharge instructions with pt. pt verbalized understanding.
== END 2022-10-06 04:56 | disposition home or self-care (01) ==
PROVIDERS: Emergency Provider Student in an Organized Health Care Education/Training Program
DX: R07.89 Other chest pain (principal); R11.2 Nausea with vomiting, unspecified; K21.9 Gastro-esophageal reflux disease without esophagitis; K80.50 Calculus of bile duct without cholangitis or cholecystitis without obstruction; Z79.899 Other long term (current) drug therapy
CPT/HCPCS: 36415; 80053; 80307; 84443; 84484; 85025; 93005; 99285

== ENCOUNTER → 2022-10-06 01:24 | Outpatient (BNV) | payer MEDICAID, SELFPAY | PROVIDERS: Emergency Provider Student in an Organized Health Care Education/Training Program; Visit Provider Internal Medicine Cardiovascular Disease | DX: R00.0 Tachycardia, unspecified (principal) | CPT/HCPCS: 93010 ==

== ENCOUNTER 2023-01-01 17:48 | Emergency (ER) | payer MEDICAID, SELFPAY ==
[2023-01-01 19:10] VITALS: BP 130/86; PULSE 101; RESP 18; TEMP 36.7; O2SAT 97; BMI 39.3
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
== END 2023-01-01 22:54 | disposition home or self-care (01) ==
PROVIDERS: Emergency Provider Internal Medicine
DX: M25.512 Pain in left shoulder (principal); M54.50 Low back pain, unspecified; M54.2 Cervicalgia; R07.89 Other chest pain; Z79.899 Other long term (current) drug therapy
CPT/HCPCS: 36415; 72040; 73030; 80053; 84484; 85025; 93005; 99283

== ENCOUNTER 2023-01-13 14:01 | Outpatient (REF) | payer MEDICAID, SELFPAY ==
[2023-01-14 03:47] LABS: CT PCR NOT DETECTED (Not Detect.); NG PCR NOT DETECTED (Not Detect.)
[2023-01-14 13:56] LABS: Syphilis Screen Nonreactive (Nonreactive)
[2023-01-16 04:01] LABS: HBS Num1 13.76 mIU/mL (0-7.99); HBc Num1 0.06 S/CO (0.00-0.79); HBsAGNum1 0.36 S/CO (0.00-0.99); HIV AB/AG Nonreactive (Nonreactive); HIV Num 1 0.06 S/CO (0.00-0.99); Hepatitis B Core Antibody Nonreactive (Nonreactive); Hepatitis B Surface Antigen Negative (Negative); ~HepC Num1 0.09 S/CO (0.00-0.79); ~Hepatitis B Surface Antibody REACTIVE (Nonreactive); ~Hepatitis C Antibody Nonreactive (Nonreactive)
== END 2023-01-13 14:02 | disposition home or self-care (01) ==
LOC: HO.HHCL 14:01
PROVIDERS: Visit Provider Internal Medicine Geriatric Medicine
DX: Z11.3 Encounter for screening for infections with a predominantly sexual mode of transmission (principal)
CPT/HCPCS: 0353U; 86704; 86706; 86780; 86803; 87340; 87389

== ENCOUNTER 2023-08-30 13:04 | Outpatient (REF) | payer MEDICAID, SELFPAY ==
[2023-08-30 16:34] LABS: Estimated Average Glucose 94 mg/dL; Hemoglobin A1c % 4.9 % (<6.0)
[2023-08-30 16:49] LABS: Alanine Aminotransferase 15 U/L (0-40); Albumin Level 4.4 g/dL (3.5-5.0); Alkaline Phosphatase 83 U/L (39-117); Anion Gap 17 (12-20); Aspartate Amino Transferase 17 U/L (5-37); Bilirubin Total 0.5 mg/dL (0.0-1.0); Blood Urea Nitrogen 20 mg/dL (9-16); Calcium 9.8 mg/dL (8.4-10.2); Carbon Dioxide 23 mmol/L (22-29); Chloride 104 mmol/L (96-108); Cholesterol 170 mg/dL (<200); Estimated Glomerular Filt Rate 54; Glucose Random 81 mg/dL (60-115); HDL Cholesterol 36 mg/dL (>40); LDL Cholesterol Calculated 110 mg/dL (<100); Potassium 3.5 mmol/L (3.3-5.1); Sodium 140 mmol/L (135-145); Triglycerides 120 mg/dL (<150)
== END 2023-08-30 13:05 | disposition home or self-care (01) ==
LOC: HO.HHCL 13:04
PROVIDERS: Visit Provider Nurse Practitioner
DX: E66.09 Other obesity due to excess calories (principal); Z68.39 Body mass index [BMI] 39.0-39.9, adult; I10 Essential (primary) hypertension
CPT/HCPCS: 36415; 80053; 80061; 83036

== ENCOUNTER 2023-10-31 09:13 | Outpatient (REF) | payer MEDICAID, SELFPAY ==
--- NOTE | ~2023-10-31 | XR_ITS ---
EXAMINATION: XR ANKLE, LEFT CLINICAL INFORMATION: Patient states left ankle pain for 2 months, denies injury. COMPARISON: None available. TECHNIQUE: AP, lateral, and mortise views of the left ankle. FINDINGS: Bone mineralization is normal. Tiny posterior calcaneal spur. Mild hypertrophic change at the talonavicular joint. Ankle mortise is maintained. XR/XR ankle LT min 3V IMPRESSION: 1. Tiny posterior calcaneal spur. 2. Mild hypertrophic change at the talonavicular joint. This study was presented today October 31, 2023 for interpretation. Stat results provided at this time as requested by referring provider.
[2023-10-31 11:45] LABS: Anion Gap 16 (12-20); Blood Urea Nitrogen 29 mg/dL (9-16); Calcium 10.2 mg/dL (8.4-10.2); Carbon Dioxide 24 mmol/L (22-29); Chloride 104 mmol/L (96-108); Estimated Glomerular Filt Rate 50; Glucose Random 91 mg/dL (60-115); Potassium 3.8 mmol/L (3.3-5.1); Sodium 140 mmol/L (135-145)
[2023-10-31 12:04] LABS: Creatinine Urine 177.78 mg/dL; Microalbum/Creatinine Ratio Ur 6.1 ug/mg cr (<30)
== END 2023-10-31 09:14 | disposition home or self-care (01) ==
LOC: HO.HHCL 09:13
PROVIDERS: Visit Provider Nurse Practitioner
DX: I10 Essential (primary) hypertension (principal); M25.572 Pain in left ankle and joints of left foot
CPT/HCPCS: 36415; 73610; 80048; 82043; 82570

== ENCOUNTER → 2024-07-02 10:57 | Outpatient (REF) | payer MEDICAID, SELFPAY | LOC: HO.SL 10:57 | PROVIDERS: PCP Nurse Practitioner; Visit Provider Nurse Practitioner | DX: G47.10 Hypersomnia, unspecified (principal) | CPT/HCPCS: 95806 ==

== ENCOUNTER → 2024-07-02 19:00 | Outpatient (BNV) | payer MEDICAID, SELFPAY | PROVIDERS: PCP Nurse Practitioner; Visit Provider Internal Medicine | DX: G47.10 Hypersomnia, unspecified (principal); R06.83 Snoring | CPT/HCPCS: 95806 ==

== ENCOUNTER 2024-09-16 10:50 | Outpatient (REF) | payer MEDICAID, SELFPAY ==
--- OUTSIDE RECORDS SUMMARY | 2024-09-16 12:14 | XMS_ITS | Encounter Summary ---
Author Organization [facility] [employer] Address [address] [place] [address] [address] [place] [address] Care Team Providers Care Data Processing Clerk Name Role Phone Kenzie Verde NP Primary Care Provider [phone] Reason for Visit * Reason Onset Date Comments New Patient 11/15/2022 Encounter Details Date Type Department Care Team ([facility] st Contact Info) Description 11/15/2022 Telephone [facility] [address] [place] [address] Rito Zavala MD [address] [place] [address] New Patient Social History Tobacco Use Types Packs/Day Years Used Date Smoking Tobacco: Never Passive Smoke Exposure: Never Smokeless Tobacco: Never Sex and Gender Information Value Date Recorded Sex Assigned at Male 11/03/2022 10:25 AM EDT Legal Sex Male 10:20 AM EDT Gender Identity Male 11/03/2022 10:25 AM EDT Sexual Orientation Straight 11/03/2022 10 :25 AM EDT documented as of this encounter Miscellaneous Notes * Telephone Encounter - Jewels Dean - 11/15/2022 4:11 PM EDT Pt has been transfer over to wait list for [employer]. EFFECTIVE SINCE 11/15/2022 documented in this encounter Plan of Treatment Not on file documented as of this encounter Visit Diagnoses Not on filedocumented in this encounter Care Teams Data Processing Clerk Relationship Specialty Start Date End Date Kenzie Verde NP [address] [place] [address] PCP - General Family Medicine 01/13/23 documented as of this encounter
[2024-09-16 13:13] LABS: Estimated Average Glucose 91 mg/dL; Hemoglobin A1c % 4.8 % (<6.0)
[2024-09-16 13:27] LABS: Anion Gap 13 (12-20); Blood Urea Nitrogen 13 mg/dL (9-16); Calcium 9.5 mg/dL (8.4-10.2); Carbon Dioxide 21 mmol/L (22-29); Chloride 109 mmol/L (96-108); Cholesterol 131 mg/dL (<200); Estimated Glomerular Filt Rate 56; Glucose Random 89 mg/dL (60-115); HDL Cholesterol 27 mg/dL (>40); LDL Cholesterol Calculated 77 mg/dL (<100); Potassium 3.7 mmol/L (3.3-5.1); Sodium 139 mmol/L (135-145); Triglycerides 135 mg/dL (<150)
[2024-09-16 13:32] LABS: Creatinine Urine 326.61 mg/dL; Microalbum/Creatinine Ratio Ur 7.3 ug/mg cr (<30)
== END 2024-09-16 10:51 | disposition home or self-care (01) ==
LOC: HO.HHCL 10:50
PROVIDERS: PCP Nurse Practitioner; Visit Provider Nurse Practitioner
DX: I10 Essential (primary) hypertension (principal); E66.813 Obesity, class 3; Z68.41 Body mass index [BMI] 40.0-44.9, adult
CPT/HCPCS: 36415; 80048; 80061; 82043; 82570; 83036

== ENCOUNTER 2025-01-22 11:32 | Emergency (ER) | payer MEDICAID, SELFPAY ==
--- NOTE | ~2025-01-22 | US_ITS ---
EXAMINATION: US TRIPLEX UPPER EXTREMITY, LEFT CLINICAL INFORMATION: Pain COMPARISON: None available. TECHNIQUE: Color-flow triplex imaging with spectral analysis and compression Doppler was performed on the left upper extremity. FINDINGS: The left internal jugular, subclavian, and axillary veins are patent and free of thrombus. The imaged segment of the left brachiocephalic vein is patent. Spectral doppler waveforms are normal. The brachial, basilic, cephalic, radial, and ulnar veins are patent and compressible. US/US venous duplex UE LT IMPRESSION: No evidence of deep venous thrombosis involving the left upper extremity. Electronically signed by: Kasey De Los Santos MD 01/22/2025 04:10 PM EDT
[2025-01-22 11:34] VITALS: BP 167/74; PULSE 120; RESP 16; TEMP 36.7; O2SAT 97; BMI 35.3
--- NOTE | 2025-01-22 11:37 | ED_ITS ---
HPI - General Adult General Chief complaint: Extremity Problem Stated complaint: High Blood Pressure Time Seen by Provider: 01/22/25 12:22 Source: patient Mode of arrival: ambulatory Limitations: no limitations History of Present Illness HPI narrative: This is 39 years old left-handed man presented to the emergency department complaining of left forearm and left hand pain. He works in the [employer] he does repeatedly movement, he is complaining of pain in the left arm since 11:00 the pain is getting better at this time. Denies any chest pain shortness of breath he has a history of hypertension he has not taken his BP meds today Onset (ago): hour(s) (3) Location: upper extremity (left) Radiation: non-radiation Severity: mild Quality: burning Pain Consistency: constant Relieving factors: none Exacerbating factors: none Related Data Previous Rx's ?Medication ?Instructions ?Recorded hydrochlorothiazide 25 mg tablet 25 mg PO DAILY #30 ta bs 10/06/22 omeprazole 40 mg capsule,delayed 40 mg PO DAILY #30 ca ps 10/06/22 release ibuprofen 600 mg tablet 600 mg PO Q6H PRN pain #20 t abs 01/01/23 methocarbamol 750 mg tablet 750 mg PO TID PRN muscle s pasm #12 01/01/23 tabs Allergies Allergy/AdvReac Type Severity Reaction Status Date / Time Crustaceans Allergy Unknown EYES GET Uncoded 01/22/25 11:37 RED Review of Systems 2 Constitutional: Constitutional: Reports no additional constitutional complaints ENT: Reports system reviewed and no additional complaints, except as documented Cardiovascular: Cardiovascular: Reports no additional cardiovascular complaints Respiratory: Respiratory: Reports no additional respiratory complaints [facility] Past Medical History Attestation statement: The following information was validated with the patient. [facility] Narrative: Hypertension Social History Social History Unable to assess alcohol history related to: Unknown Alcohol intake: never Smoked in Last 30 Days: No Use of substances other than those prescribed or required for medical reasons: Unknown Advance Directives: No Advance Directives Information Provided: Yes Physical Exam ED Exam Exam: Not acute distress Vital Signs: Vital Signs - 24 hr 01/22/25 11:34 01/22/25 12:00 01/22/25 14:11 Temperature 98.1 F 98 F Pulse Rate 120 H 72 95 Respiratory Rate 16 20 18 Blood Pressure 167/74 H 119/78 128/89 Pulse Oximetry 97 99 98 Oxygen Delivery Method Room Air Room Air Room Air BMI result Body Mass Index 35.3 Const General: cooperative, comfortable and no acute distress Nutritional Appearance: average body habitus Orientation/consciousness: patient oriented x3 Limitations: no limitations HENMT Head: Yes normal to inspection General nose exam: Normal external nose present Face and sinus: Yes normal facial exam Mouth: Normal oral and palatal mucosa present Neck Neck: Yes normal visual inspection Chest Chest palpation & inspection: normal inspection of the chest Resp Effort & Inspection: normal respiratory effort Cardio Jugular venous distension: no JVD Rate: regular rate Rhythm: regular rhythm Skin General skin exam: no rashes or lesions noted Lesions: no lesions Rashes: no rashes Neuro General: patient oriented x3, Normal light touch and pain sensation, no focal motor deficits and decrease sensation to monofilament Cranial nerves: Yes CN's II-XII intact bilaterally Extrem Other: Examination of the left hand for extremity shows good pulses, no rash, no deformity Course Course Course Narrative: Rapid medical screening exam was performed. Patient hemodynamically stable at time of evaluation. 39 yo M presented left arm pain. 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 Noticed to be tachycardic at work. No chest pain. Does endorse some neck pain. Tachycardic 120 at triage. Airway intact. No trauma. Robinfermin Davis Inocente, 01/22/25 1137 Reevaluation(s) Reevaluation #1: Ultrasound negative he is feeling better at this time I think he can be discharged home most likely musculoskeletal pain, he is comfortable with the plan of care his vital signs are stable as 14:11 heart rate is 95 blood pressure 128/89 Time: 16:26 Medical Decision Making Medical Decision Making [facility] Narrative: This patient presented with a left arm pain, we will do an EKG I think it is reasonable to get an ultrasound to rule out DVT Differential Diagnosis Differential Diagnoses: The differential diagnosis associated with the presentation includes Tendinitis/DVT/musculoskeletal pain Admission/Observation Consideration of admission/observation: Escalation of care including admission/observation considered Lab Data [facility] Lab Attestation statement: I reviewed the patient's lab results. 01/22/25 11:52 01/22/25 11:52 Labs: Lab Results 01/22/25 Range/Units 11:52 WBC 8.0 (4.8-10.8) X10*3/uL RBC 5.36 (4.60-5.80) X10*6/uL Hgb 14.7 (14.0-18.0) g/dl Hct 43.6 (42.0-52.0) % MCV 81.3 (80.0-98.0) fL MCH 27.4 (27.0-33.0) pg MCHC 33.7 (31.0-36.0) g/dl RDW 14.3 (11.0-16.0) % Plt Count 245 (160-400) X10*3/uL MPV 10.3 (9.4-12.4) fL Immature Gran % (Auto) 0.4 (0.0-0.4) % Neut % (Auto) 72.2 (45-73) % Lymph % (Auto) 17.7 L (20-40) % [place] % (Auto) 8.4 (2-11) % Eos % (Auto) 0.7 (0-4) % Baso % (Auto) 0.6 (0-2) % Lymph # (Auto) 1.4 (1.2-4.9) X10*3/uL [place] # (Auto) 0.7 (0.1-1.2) X10*3/uL Eos # (Auto) 0.1 (0.0-0.4) X10*3/uL Baso # (Auto) 0.1 (0.0-0.2) X10*3/uL Abs Immat Gran (auto) 0.03 (0.00-0.03) X10*3/uL Absolute Neuts (auto) 5.8 (2.0-8.3) x10*3/uL Absolute Nucleated RBC 0.000 (0.0-0.012) X10*3/uL Nucleated RBC % (auto) 0.0 (0.0-0.2) /100WBC Sodium 141 (135-145) mmol/L Potassium 3.7 (3.3-5.1) mmol/L Chloride 111 H (96-108) mmol/L Carbon Dioxide 22 (22-29) mmol/L Anion Gap 12 (12-20) BUN 18 H (9-16) mg/dL Creatinine 1.49 H (0.5-1.4) mg/dL Estim Creat Clear Calc 82.3 Estimated GFR 52 Random Glucose 87 (60-115) mg/dL Calcium 9.3 (8.4-10.2) mg/dL Magnesium 2.0 (1.6-2.6) mg/dL Total Creatine Kinase 331 H (38-174) U/L Troponin I High Sens 8.0 (<3.5-35.0) ng/L Independent Interpretation I performed an independent interpretation of an: EKG and Ultrasound (no DVT) Interpretation: EKG was reviewed interpreted by me as sinus tachycardia rate [address]-T changes nonischemic Radiology Impression Discussion of test interpretation with radiology: I have reviewed the radiologist's reading. Chronic Conditions Patient?s care impacted by: Hypertension Discharge Plan Discharge Clinical Impression: Arm pain, left Patient Disposition: Home, Self-Care Instructions: Arm Pain (ED) Additional Instructions: Follow-up with your primary care physician take ibuprofen or Tylenol for pain return if worse Prescriptions: No Action hydrochlorothiazide 25 mg tablet 25 mg PO DAILY Qty: 30 0RF omeprazole 40 mg capsule,delayed release(DR/EC) 40 mg PO DAILY Qty: 30 0RF ibuprofen 600 mg tablet 600 mg PO Q6H PRN (Reason: pain) Qty: 20 0RF methocarbamol 750 mg tablet 750 mg PO TID PRN (Reason: muscle spasm) Qty: 12 0RF Stand Alone Forms: Work/School Release Interventions: ED Discharge Assessment Last Done: 01/22/25 16:36 Discharge Date/Time: 01/22/25 16:38 Print Language: [place]
--- NOTE | 2025-01-22 11:40 | ECG_ITS ---
Test Reason : TACHY Blood Pressure : */* mmHG Vent. Rate : 115 BPM Atrial Rate : 115 BPM P-R Int : 148 ms QRS Dur : 102 ms QT Int : 320 ms P-R-T Axes : 68 36 38 degrees QTcB Int : 442 ms Sinus tachycardia Otherwise normal ECG When compared with ECG of 01-Jan-2023 19:22, No significant changes seen Referred By: Loni Brower Electronically Signed By: CARMEN DAVIS
[2025-01-22 11:58] LABS: MANUAL DIFF FLAG NO
[2025-01-22 12:00] VITALS: BP 119/78; PULSE 72; RESP 20; O2SAT 99
[2025-01-22 12:11] LABS: Hematocrit 43.6 % (42.0-52.0); Hemoglobin 14.7 g/dl (14.0-18.0); Imm Gran Abs Auto 0.03 X10*3/uL (0.00-0.03); Imm Gran Pct Auto 0.4 % (0.0-0.4); Lymphocytes Absolute Auto 1.4 X10*3/uL (1.2-4.9); Mean Corpuscular HGB Conc 33.7 g/dl (31.0-36.0); Mean Corpuscular Hemoglobin 27.4 pg (27.0-33.0); Mean Corpuscular Volume 81.3 fL (80.0-98.0); NRBC Abs Auto 0.000 X10*3/uL (0.0-0.012); NRBC Pct Auto 0.0 /100WBC (0.0-0.2); Platelet Count 245 X10*3/uL (160-400); Red Blood Count 5.36 X10*6/uL (4.60-5.80); White Blood Count 8.0 X10*3/uL (4.8-10.8)
[2025-01-22 12:26] LABS: Anion Gap 12 (12-20); Blood Urea Nitrogen 18 mg/dL (9-16); Calcium 9.3 mg/dL (8.4-10.2); Carbon Dioxide 22 mmol/L (22-29); Chloride 111 mmol/L (96-108); Creatinine Clr Calc Pharmacy 82.3; Estimated Glomerular Filt Rate 52; Magnesium 2.0 mg/dL (1.6-2.6); Potassium 3.7 mmol/L (3.3-5.1); Sodium 141 mmol/L (135-145)
--- NOTE | 2025-01-22 14:07 | ED_ITS ---
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 He has a history of hypertension he is feeling better at this time he has not taken his blood pressure medication today denies any chest pain or shortness of breath Related Data Previous Rx's ?Medication ?Instructions ?Recorded hydrochlorothiazide 25 mg tablet 25 mg PO DAILY #30 ta bs 10/06/22 omeprazole 40 mg capsule,delayed 40 mg PO DAILY #30 ca ps 10/06/22 release ibuprofen 600 mg tablet 600 mg PO Q6H PRN pain #20 t abs 01/01/23 methocarbamol 750 mg tablet 750 mg PO TID PRN muscle s pasm #12 01/01/23 tabs Allergies Allergy/AdvReac Type Severity Reaction Status Date / Time Crustaceans Allergy Unknown EYES GET Uncoded 01/22/25 11:37 RED PMFSH Social History Social History Alcohol intake: never Advance Directives: No Advance Directives Information Provided: Yes Physical Exam 2 Vital Signs: Vital Signs: Last Vital Signs Temp 98.1 F 01/22/25 11:34 Pulse 72 01/22/25 12:00 Resp 20 01/22/25 12:00 BP 119/78 01/22/25 12:00 Pulse Ox 99 01/22/25 12:00 O2 Del Method Room Air 01/22/25 12:00 BMI result Body Mass Index 35.3 Medical Decision Making Lab Data 01/22/25 11:52 01/22/25 11:52 Labs: Lab Results 01/22/25 Range/Units 11:52 WBC 8.0 (4.8-10.8) X10*3/uL RBC 5.36 (4.60-5.80) X10*6/uL Hgb 14.7 (14.0-18.0) g/dl Hct 43.6 (42.0-52.0) % MCV 81.3 (80.0-98.0) fL MCH 27.4 (27.0-33.0) pg MCHC 33.7 (31.0-36.0) g/dl RDW 14.3 (11.0-16.0) % Plt Count 245 (160-400) X10*3/uL MPV 10.3 (9.4-12.4) fL Immature Gran % (Auto) 0.4 (0.0-0.4) % Neut % (Auto) 72.2 (45-73) % Lymph % (Auto) 17.7 L (20-40) % [place] % (Auto) 8.4 (2-11) % Eos % (Auto) 0.7 (0-4) % Baso % (Auto) 0.6 (0-2) % Lymph # (Auto) 1.4 (1.2-4.9) X10*3/uL [place] # (Auto) 0.7 (0.1-1.2) X10*3/uL Eos # (Auto) 0.1 (0.0-0.4) X10*3/uL Baso # (Auto) 0.1 (0.0-0.2) X10*3/uL Abs Immat Gran (auto) 0.03 (0.00-0.03) X10*3/uL Absolute Neuts (auto) 5.8 (2.0-8.3) x10*3/uL Absolute Nucleated RBC 0.000 (0.0-0.012) X10*3/uL Nucleated RBC % (auto) 0.0 (0.0-0.2) /100WBC Sodium 141 (135-145) mmol/L Potassium 3.7 (3.3-5.1) mmol/L Chloride 111 H (96-108) mmol/L Carbon Dioxide 22 (22-29) mmol/L Anion Gap 12 (12-20) BUN 18 H (9-16) mg/dL Creatinine 1.49 H (0.5-1.4) mg/dL Estim Creat Clear Calc 82.3 Estimated GFR 52 Random Glucose 87 (60-115) mg/dL Calcium 9.3 (8.4-10.2) mg/dL Magnesium 2.0 (1.6-2.6) mg/dL Total Creatine Kinase 331 H (38-174) U/L Discharge Plan Discharge Prescriptions: No Action hydrochlorothiazide 25 mg tablet 25 mg PO DAILY Qty: 30 0RF omeprazole 40 mg capsule,delayed release(DR/EC) 40 mg PO DAILY Qty: 30 0RF ibuprofen 600 mg tablet 600 mg PO Q6H PRN (Reason: pain) Qty: 20 0RF methocarbamol 750 mg tablet 750 mg PO TID PRN (Reason: muscle spasm) Qty: 12 0RF Print Language: Bur[place]ian
[2025-01-22 14:11] VITALS: BP 128/89; PULSE 95; RESP 18; TEMP 36.6; O2SAT 98
[2025-01-22 14:20] LABS: Troponin-I High Sensitivity 8.0 ng/L (<3.5-35.0)
[2025-01-22 16:36] VITALS: BP 128/70; PULSE 65; RESP 16; TEMP 36.6; O2SAT 99
== END 2025-01-22 16:38 | disposition home or self-care (01) ==
PROVIDERS: Student in an Organized Health Care Education/Training Program; Emergency Provider Emergency Medicine
DX: M79.602 Pain in left arm (principal); R00.0 Tachycardia, unspecified
CPT/HCPCS: 36415; 80048; 82550; 83735; 84484; 85025; 93005; 93971; 99284

== ENCOUNTER → 2025-01-22 11:40 | Outpatient (BNV) | payer MEDICAID, SELFPAY | PROVIDERS: Emergency Provider Emergency Medicine; Visit Provider Internal Medicine | DX: R00.0 Tachycardia, unspecified (principal) | CPT/HCPCS: 93010 ==

== ENCOUNTER → 2025-01-22 13:56 | Outpatient (BNV) | payer MEDICAID, SELFPAY | PROVIDERS: Emergency Provider Emergency Medicine; Visit Provider Radiology Diagnostic Radiology | DX: M79.602 Pain in left arm (principal) | CPT/HCPCS: 93971 ==

== ENCOUNTER 2025-01-26 09:32 | Emergency (ER) | payer MEDICAID, SELFPAY ==
--- NOTE | ~2025-01-26 | XR_ITS ---
CLINICAL HISTORY: foot swelling 3 view left foot Comparison: CR/SR - XR ANKLE 3 OR MORE VIEWS LEFT - 10/31/23 09:45 EDT Findings: Bones intact. No dislocations. No significant arthritic change or erosions. No ankle effusion. No radiopaque foreign body. IMPRESSION: 1. No acute bony abnormality. This document has been electronically signed by: Janny Lezama MD on 01/26/2025 13:08:24
[2025-01-26 09:42] VITALS: BP 139/91; PULSE 105; RESP 16; TEMP 36.6; O2SAT 98; BMI 35.0
--- OUTSIDE RECORDS SUMMARY | 2025-01-26 11:16 | XMS_ITS | Encounter Summary ---
Author Organization [employer] Address [address] [place] [address] [address] [place] [address] Care Team Providers Care Material Handling Crew Supervisor Name Role Phone Kenzie Verde NP Primary Care Provider [phone] Reason for Visit * Reason Comments Med Refill Encounter Details Date Type Department Care Team (Late st Contact Info) Description 11/12/2024 Refill [facility] [address] [place] [address] Kenzie Verde NP [address] [place] [address] Class 3 severe obesity due to excess calories with serious comorbidity and body mass index (BMI) of 40.0 to 44.9 in adult Social History Tobacco Use Types Packs/Day Years Used Date Smoking Tobacco: Never Passive Smoke Exposure: Never Smokeless Tobacco: Never Alcohol Use Standard Drinks/Week Comments Never 0 (1 standard drink = 0.6 oz pur e alcohol) Depression Answer Date Recorded Patient Health Questionnaire-9 Score 16 04/08/2024 Patient Health Questionnaire-9 Score 16 04/08/2024 Last PHQ-9: Questionnaire Data Not on file 0 04/08/2024 Housing Stability Answer Date Recorded What is your housing situation today? I do not have housing (Staying with others, in a hotel, in a long term, living outside on the street, on a beach, in a car, or in a park 04/08/[address] you li ve. Do you have problems with any of the following? None of the above 04/08/2024 Food Insecurity Answer Date Recorded Within the past 12 months, y ou worried that your food would run out before you got money to buy more: Sometimes True 2024 Within the past 12 months,th e food you bought just didn't last and you didn't have enough money to get more: Sometimes True 04/08/2024 Transportation Answer Date Recorded In the past 12 months, has l ack of transportation kept you from medical appts, meetings, work or from getting things needed for daily living? No 04/08/2024 Utilities Answer Date Recorded In the past 12 months, has t he electric, gas, oil or water company threatened to shut off services in your home? No 04/08/2024 Depression Answer Date Recorded Patient Health Questionnaire-2 Score 5 04/08/2024 Internet Access Answer Date Recorded Internet Access Q1 No 04/08/2024 Internet Access Q2 I cannot afford it 04/08/2024 Sex and Gender Information Value Date Recorded Sex Assigned at Male 11/03/2022 10:25 AM EDT Legal Sex Male 10:20 AM EDT Gender Identity Male 11/03/2022 10:25 AM EDT Sexual Orientation Straight 11/03/2022 10 :25 AM EDT documented as of this encounter Plan of Treatment Upcoming Encounters Date Type Department Care Team (Late st Contact Info) Description 01/27/2025 1:45 PM EST Office Visit [facility] [address] [place] [address] Kenzie Verde NP [address] [place] [address] documented as of this encounter Visit Diagnoses Diagnosis Class 3 severe obesity due to excess calories with serious comorbidity and body mass index (BMI) of 40.0 to 44.9 in adult (HCC) documented in this encounter Additional Health Concerns Assessment Noted Time PHQ-9 Depression Total Score: 16 025 9:32 AM EST documented as of this encounter Care Teams Material Handling Crew Supervisor Relationship Specialty Start Date End Date Kenzie Verde NP [address] [place] [address] PCP - General Family Medicine 01/13/23 documented as of this encounter
--- OUTSIDE RECORDS SUMMARY | 2025-01-26 11:16 | XMS_ITS | Encounter Summary ---
Author Organization [employer] Address [address] [place] [address] Care Team Providers Care Investor Relations Specialist Name Role Phone Elaineosorio Kenzie BELTRÁN Primary Care Provider [phone] Reason for Visit * Reason Comments Med Refill Encounter Details Date Type Department Care Team (Late st Contact Info) Description 04/25/2023 Refill [facility] [address] [place] [address] Name, MD Jarred [address] [place] [address] Social History Tobacco Use Types Packs/Day Years Used Date Smoking Tobacco: Never Passive Smoke Exposure: Never Smokeless Tobacco: Never Alcohol Use Standard Drinks/Week Comments Never 0 (1 standard drink = 0.6 oz pur e alcohol) Depression Answer Date Recorded Patient Health Questionnaire-9 Score 0 01/13/2023 Patient Health Questionnaire-9 Score 0 01/13/2023 Last PHQ-9: Questionnaire Data Not on file 1 Housing Stability Answer Date Recorded What is your housing situation today? I have dania clemens 01/09/[address] you li ve. Do you have problems with any of the following? None of the above 01/09/2023 Food Insecurity Answer Date Recorded Within the past 12 months, y ou worried that your food would run out before you got money to buy more: Often true 01/09/2023 Within the past 12 months,th e food you bought just didn't last and you didn't have enough money to get more: Often true Transportation Answer Date Recorded In the past 12 months, has l ack of transportation kept you from medical appts, meetings, work or from getting things needed for daily living? No 01/09/2023 Utilities Answer Date Recorded In the past 12 months, has t he electric, gas, oil or water company threatened to shut off services in your home? No 01/09/2023 Depression Answer Date Recorded Patient Health Questionnaire-2 Score 0 01/13/2023 Sex and Gender Information Value Date Recorded Sex Assigned at Male 11/03/2022 10:25 AM EDT Legal Sex Male 10:20 AM EDT Gender Identity Male 11/03/2022 10:25 AM EDT Sexual Orientation Straight 11/03/2022 10 :25 AM EDT documented as of this encounter Miscellaneous Notes * Telephone Encounter - Kenzie Verde NP - 04/25/2023 4:29 PM EST Approving, but needs appt for additional refills. documented in this encounter Plan of Treatment Upcoming Encounters Date Type Department Care Team (Late st Contact Info) Description 01/27/2025 1:45 PM EST Office Visit [facility] [address] [place] [address] Kenzie Verde NP [address] [place] [address] documented as of this encounter Visit Diagnoses Not on filedocumented in this encounter Additional Health Concerns Assessment Noted Time PHQ-9 Depression Total Score: 0 01/14/20 1:14 PM EDT documented as of this encounter Care Teams Investor Relations Specialist Relationship Specialty Start Date End Date Kenzie Verde NP [address] [place] [address] PCP - General Family Medicine 01/13/23 documented as of this encounter
--- OUTSIDE RECORDS SUMMARY | 2025-01-26 11:16 | XMS_ITS | Encounter Summary ---
Author Organization [employer] Address [address] [facility] 7t [place] [address] Care Team Providers Care Radar Air Traffic Controller Name Role Phone Kenzie Verde NP Primary Care Provider Reason for Visit * Reason Onset Date Comments Med Refill 05/02/2024 Encounter Details Date Type Department Care Team (Late st Contact Info) Description 05/02/2024 Refill [facility] [address] [place] [address] Kenzie Verde NP [address] [place] [address] Primary hypertension Social History Tobacco Use Types Packs/Day Years [...] with others, in a hotel, in a nursing home, living outside on the street, on a [...] Description 01/27/2025 1:45 PM EST Office Visit [facility] [address] [place] [address] Kenzie Verde NP [address] [place] [address] documented as of this encounter Visit Diagnoses Diagnosis Primary hypertension Unspecified essential hypertension documented in this encounter Additional Health Concerns Assessment Noted Time PHQ-9 Depression Total Score: 16 025 9:32 AM EST documented as of this encounter Care Teams Radar Air Traffic Controller Relationship Specialty Start Date End Date Kenzie Verde NP [address] [place] [address] PCP - General Family Medicine 01/13/23 documented as of this encounter
--- OUTSIDE RECORDS SUMMARY | 2025-01-26 11:16 | XMS_ITS | Encounter Summary ---
Author Organization [employer] Address [address] [place] [address] [address] [place] [address] Care Team Providers Care Brick Grader Name Role Phone ElaineKenzie ac LEIGH ANN Primary Care Provider [phone] Reason for Visit * Reason Onset Date Comments New Patient 11/15/2022 Encounter Details Date Type Department Care Team (Late st Contact Info) Description 11/15/2022 Telephone [facility] [address] [place] [address] [phone] Rito Zavala MD [address] [place] [address] New Patient Social History Tobacco Use Types [...] been transfer over to wait list for [employer]. EFFECTIVE SINCE 11/15/2022 documented in this encounter Plan of Treatment Upcoming Encounters Date Type Department Care Team (Late st Contact Info) Description 01/27/2025 1:45 PM EST Office Visit [facility] [address] [place] [address] Kenzie Verde NP [address] [place] [address] documented as of this encounter Visit Diagnoses Not on filedocumented in this encounter Care Teams Brick Grader Relationship Specialty Start Date End Date Kenzie Verde NP [address] [place] [address] PCP - General Family Medicine 01/13/23 documented as of this encounter
--- OUTSIDE RECORDS SUMMARY | 2025-01-26 11:16 | XMS_ITS | Encounter Summary ---
Author Organization [employer] Address [address] [facility] [address] [place] [address] Care Team Providers Care Shop Assistant Name Role Phone Kenzie Verde NP Primary Care Provider [phone] Encounter Details Date Type Department Care Team ([facility] st Contact Info) Description 11/13/2024 Orders Only [facility] [address] [place] [address] Kenzie Verde NP [address] [place] [address] Class 3 severe obesity due to excess calories with serious comorbidity and body mass index (BMI) of 40.0 to 44.9 in adult (Primary Dx) Social History Tobacco Use Types Packs/Day Years [...] with others, in a hotel, in a senior living, living outside on the street, on a [...] Description 01/27/2025 1:45 PM EST Office Visit [facility] [address] [place] [address] Kenzie Verde NP [address] [place] [address] documented as of this encounter Visit Diagnoses Diagnosis Class 3 severe obesity due to excess calories with serious comorbidity and body mass index (BMI) of 40.0 to 44.9 in adult (HCC)- Primary documented in this encounter Additional Health Concerns Assessment Noted Time PHQ-9 Depression Total Score: 16 025 9:32 AM EST documented as of this encounter Care Teams Shop Assistant Relationship Specialty Start Date End Date Kenzie Verde NP [address] [place] [address] PCP - General Family Medicine 01/13/23 documented as of this encounter
--- OUTSIDE RECORDS SUMMARY | 2025-01-26 11:16 | XMS_ITS | Encounter Summary ---
Author Organization [employer] Address [address] [facility] [address] [place] [address] Care Team Providers Care Bottom Turning Lathe Tender Name Role Phone Kenzie Verde NP Primary Care Provider [phone] Reason for Visit * Reason Onset Date Comments Chart Prep 01/24/2025 Encounter Details Date Type Department Care Team ([facility] st Contact Info) Description 01/24/2025 Telephone [facility] [address] [place] [address] Kenzie Verde NP [address] [place] [address] Chart Prep Social History Tobacco Use Types Packs/Day Years [...] encounter Miscellaneous Notes * Telephone Encounter - Dorian Stockton [place] - 01/24/2025 3:05 PM EDT Chart Prep Labs: done Images: done Referrals: Referrals: Evaluate and treat Physical Therapy ([facility]) Patient Appointment Information Location: [address] [place] [address] FAX [phone] Vaccines due: Covid, Flu, and HPV Screenings: not applicable Overdue care gaps: Tobacco documented in this encounter Plan of Treatment Upcoming Encounters Date Type Department Care Team (Late st Contact Info) Description 01/27/2025 1:45 PM EST Office Visit [facility] [address] [place] [address] Kenzie Verde NP [address] [place] [address] documented as of this encounter Visit Diagnoses Not on filedocumented in this encounter Additional Health Concerns Assessment Noted Time PHQ-9 Depression Total Score: 16 025 9:32 AM EST documented as of this encounter Care Teams Bottom Turning Lathe Tender Relationship Specialty Start Date End Date Kenzie Verde NP [address] [place] [address] PCP - General Family Medicine 01/13/23 documented as of this encounter
--- OUTSIDE RECORDS SUMMARY | 2025-01-26 11:16 | XMS_ITS | Encounter Summary ---
Author Organization [employer] Address [address] [facility] [address] [place] [address] Care Team Providers Care Underwater Hunter Name Role Phone Kenzie Verde NP Primary Care Provider [phone] Encounter Details Date Type Department Care Team ([facility] st Contact Info) Description 10/23/2024 Orders Only [facility] [address] [place] [address] Kenzie Verde NP [address] [place] [address] Social History Tobacco Use Types Packs/Day Years [...] with others, in a hotel, in a jail, living outside on the street, on a [...] Description 01/27/2025 1:45 PM EST Office Visit [facility] [address] [place] [address] Kenzie Verde NP [address] [place] [address] documented as of this encounter Visit Diagnoses Not on filedocumented in this encounter Additional Health Concerns Assessment Noted Time PHQ-9 Depression Total Score: 16 025 9:32 AM EST documented as of this encounter Care Teams Underwater Hunter Relationship Specialty Start Date End Date Kenzie Verde NP [address] [place] [address] PCP - General Family Medicine 01/13/23 documented as of this encounter
--- OUTSIDE RECORDS SUMMARY | 2025-01-26 11:16 | XMS_ITS | Encounter Summary ---
Author Organization [employer] Address [address] [place] [address] 7t [place] [address] Care Team Providers Care Corporate Tutor Name Role Phone Kenzie Verde NP Primary Care Provider [phone] Reason for Visit * Reason Onset Date Comments Med Refill 05/17/2024 Encounter Details Date Type Department Care Team (Late st Contact Info) Description 05/17/2024 Refill [facility] [address] [place] [address] Kenzie Verde NP [address] [place] [address] Class 3 severe obesity due to excess calories with serious comorbidity and body mass index (BMI) of 40.0 to 44.9 in adult (CMS/HCC) Social History Tobacco Use Types Packs/Day Years [...] with others, in a hotel, in a detention, living outside on the street, on a [...] Description 01/27/2025 1:45 PM EST Office Visit [facility] [address] [place] [address] Kenzie Verde NP [address] [place] [address] documented as of this encounter Visit Diagnoses Diagnosis Class 3 severe obesity due to excess calories with serious comorbidity and body mass index (BMI) of 40.0 to 44.9 in adult (HCC) documented in this encounter Additional Health Concerns Assessment Noted Time PHQ-9 Depression Total Score: 16 025 9:32 AM EST documented as of this encounter Care Teams Corporate Tutor Relationship Specialty Start Date End Date Kenzie Verde NP [address] [place] [address] PCP - General Family Medicine 01/13/23 documented as of this encounter
--- OUTSIDE RECORDS SUMMARY | 2025-01-26 11:16 | XMS_ITS | Encounter Summary ---
Author Organization [employer] Address [address] [place] [address] 7t [place] [address] Care Team Providers Care Hearing Care Practitioner Name Role Phone Kenzie Verde NP Primary Care Provider [phone] Reason for Visit * Reason Onset Date Comments Med Refill 05/14/2024 Encounter Details Date Type Department Care Team (Late st Contact Info) Description 05/14/2024 Refill [facility] MED[facility]INE [address] [place] [address] Kenzie Verde NP [address] [place] [address] Class 3 severe obesity due to excess [...] with others, in a hotel, in a residential, living outside on the street, on a [...] Description 01/27/2025 1:45 PM EST Office Visit [facility] [address] [place] [address] Kenzie Verde NP [address] [place] [address] documented as of this encounter Visit Diagnoses Diagnosis Class 3 severe obesity due to excess calories with serious comorbidity and body mass index (BMI) of 40.0 to 44.9 in adult (HCC) documented in this encounter Additional Health Concerns Assessment Noted Time PHQ-9 Depression Total Score: 16 025 9:32 AM EST documented as of this encounter Care Teams Hearing Care Practitioner Relationship Specialty Start Date End Date Kenzie Verde NP [address] [place] [address] PCP - General Family Medicine 01/13/23 documented as of this encounter
--- OUTSIDE RECORDS SUMMARY | 2025-01-26 11:16 | XMS_ITS | Encounter Summary ---
Author Organization [employer] Address [address] [facility] [address] [place] [address] Care Team Providers Care Wall Covering Contractor Name Role Phone Elaineosorio Kenzie LEIGH ANN Primary Care Provider [phone] Encounter Details Date Type Department Care Team (Late st Contact Info) Description 01/22/2025 Orders Only GENERIC EXTERNAL DATA DEPARTMENT Provider, Generic External Data Social History Tobacco Use Types Packs/Day Years [...] with others, in a hotel, in a prison, living outside on the street, on a [...] Description 01/27/2025 1:45 PM EST Office Visit [facility] MEDICINE [address] [place], [place] [phone] Kenzie Verde NP [address] [place], [place] [phone] documented as of this encounter Procedures Procedure Name Priority Date/Time Associated Diagnosis Comments US DOPPLER EXT UPPER VENOUS LEFT Routine 01/22/2025 3:48 PM EDT HIGH SENSITIVITY TROPONIN I Routine 01/22/2025 11:52 AM EDT MAGNESIUM Routine 01/22/2025 11:52 AM EDT CREATINE KINASE, TOTAL Routine 01/22/2025 11:52 AM EDT BASIC METABOLIC PANEL Routine 01/22/2025 11:52 AM EDT documented in this encounter Results * US DOPPLER EXT UPPER VENOUS LEFT (01/22/2025 3:48 PM EDT) Anatomical Region Laterality Modality Body Ultrasound 01/22/2025 3:48 PM EDT Narrative 01/22/2025 4:13 PM EDT [address] [address] Ultrasound Report Signed Patient: Chris Pandya MR#: [id number] [birth year] : 1985 Acct:[id number] Age/Sex: 39 / M ADM Date: 01/22/25 Loc: .ED Attending Dr: Ordering Physician: Mehdi Sotelo MD Date of Service: 01/22/25 Procedure(s): US venous duplex UE LT Accession Number(s): [id number] cc: Mehdi Sotelo MD; [facility] Reason for Exam: pain r/o DVT EXAMINATION: US TRIPLEX UPPER EXTREMITY, LEFT CLINICAL INFORMATION: Pain COMPARISON: None available. TECHNIQUE: Color-flow triplex imaging with spectral analysis and compression Doppler was performed on the left upper extremity. FINDINGS: The left internal jugular, subclavian, and axillary veins are patent and free of thrombus. The imaged segment of the left brachiocephalic vein is patent. Spectral doppler waveforms are normal. The brachial, basilic, cephalic, radial, and ulnar veins are patent and compressible. US/US venous duplex UE LT IMPRESSION: No evidence of deep venous thrombosis involving the left upper extremity. Electronically signed by: Kasey De Los Santos MD 01/22/2025 04:10 PM EDT RP Dictated By: Kasey De Los Santos MD Signed By: <Electronically signed by Kasey De Los Santos MD in OV> 01/22/25 1610 DD/ 1548 TD/TT: 01/22/25 1555 Visual Effects Artist: DARA Procedure Note Donotuseinterpreter, Image - 01/22/[address] [address] Ultrasound Report Signed Patient: Chris Pandya EMR#: [id number] 1 : 1985Acct:[id number] Age/Sex: 39 / MADM Date: 01/22/25 Loc: .ED Attending Dr: Ordering Physician: Mehdi Sotelo MD Date of Service: 01/22/25 Procedure(s): US venous duplex UE LT Accession Number(s): [id number] cc: Mehdi Sotelo MD; [facility] Reason for Exam: pain r/o DVT EXAMINATION: US TRIPLEX UPPER EXTREMITY, LEFT CLINICAL INFORMATION: Pain COMPARISON: None available. TECHNIQUE: Color-flow triplex imaging with spectral analysis and compression Doppler was performed on the left upper extremity. FINDINGS: The left internal jugular, subclavian, and axillary veins are patent and free of thrombus. The imaged segment of the left brachiocephalic vein is patent. Spectral doppler waveforms are normal. The brachial, basilic, cephalic, radial, and ulnar veins are patent and compressible. US/US venous duplex UE LT IMPRESSION: No evidence of deep venous thrombosis involving the left upper extremity. Electronically signed by: Kasey De Los Santos MD 01/22/2025 04:10 PM EDT RP Dictated By: Kasey De Los Santos MD Signed By: <Electronically signed by Kasey De Los Santos MD in OV> 01/22/25 1610 DD/ 1548 TD/TT: 01/22/25 1555 Visual Effects Artist: DARA [facility] External Provider IMG US PROCEDURES Final Result * High Sensitivity Troponin I (01/22/2025 11:52 AM EDT) [facility] TROPONIN I HIGH SENSITIVITY 8.0 <3.5 - 35.0 ng/L [facility] Comment:The Calderón high sens itivity Troponin-I results should beused in conjunction with other diagnostic information suchas ECG, clinical observations and information, and patientsymptoms to aid in the diagnosis of WI. 01/22/2025 11:5 2 AM EDT 01/22/2025 2:02 PM EDT Generic External Data Provider LAB BLOOD ORDERAB LES Final Result [facility] [address] [place] [phone] * (ABNORMAL) Creatine Kinase, Total (01/22/2025 11:52 AM EDT) [facility] Creatine Kinase Total 331(H) 38 - 174 U/L [facility] 01/22/2025 11:5 2 AM EDT 01/22/2025 11:55 AM EDT us Generic External Data Provider LAB BLOOD ORDERAB LES Final Result Performing Organization Address City/[facility]/ZIP Co de Phone Number [facility] [address] [place] [address] [phone] * Magnesium (01/22/2025 11:52 AM EDT) Magnesium 2.0 1.6 - 2.6 mg/dL [facility] 01/22/2025 11:5 2 AM EDT 01/22/2025 11:55 AM EDT us Generic External Data Provider LAB BLOOD ORDERAB LES Final Result Performing Organization Address [facility]/ZIP Co de Phone Number [facility] [address] [place] [address] [phone] * (ABNORMAL) Basic Metabolic Panel (01/22/2025 11:52 AM EDT) Pathologist [facility] Sodium 141 135 - 145 mmol/L [facility] Potassium 3.7 3.3 - 5.1 mmol/L [facility] Chloride 111(H) 96 - 108 mmol/L [facility] Carbon Dioxide 22 22 - 29 mmol/L [facility] Anion Gap 12 12 - 20 [facility] Urea Nitrogen (BUN) 18(H) 9 - 16 mg/dL [facility] Creatinine, Serum 1.49(H) 0.5 - 1.4 mg/dL [facility] Creatinine Clr Calc Pharmacy 82.3 [facility] Comment:eGFR (calculated fro m the MDRD study equation) and eCrCl(calculated from the Cockcroft-Gault equation) are based ondifferent parameters and may not yield comparable results.If eCrCl result is absurd, please check patient'sheight/weight. Estimated Glomerular Filt Rate 52 [facility] Comment:Chronic Kidney Disea se: Estimated GFR < 60 mL/min/1.77x6Qolspx Kidney Disease: Estimated GFR < 15 mL/min/1.73m2 Glucose 87 60 - 115 mg/dL [facility] Calcium 9.3 8.4 - 10.2 mg/dL [facility] 01/22/2025 11:5 2 AM EDT 01/22/2025 11:55 AM EDT us Generic External Data Provider LAB BLOOD ORDERAB LES Final Result [facility] [address] [place] [address] [phone] documented in this encounter Visit Diagnoses Not on filedocumented in this encounter Additional Health Concerns Assessment Noted Time PHQ-9 Depression Total Score: 16 025 9:32 AM EST documented as of this encounter Care Teams Wall Covering Contractor Relationship Specialty Start Date End Date Kenzie Verde NP [address] [place] [phone] PCP - General Family Medicine 01/13/23 documented as of this encounter
--- OUTSIDE RECORDS SUMMARY | 2025-01-26 11:16 | XMS_ITS | Encounter Summary ---
Author Organization [employer] Address [address] [place] [address] Care Team Providers Care Water Registrar Name Role Phone Kenzie Verde NP Primary Care Provider [phone] Reason for Visit * Reason Onset Date Comments Med Refill 11/14/2023 Encounter Details Date Type Department Care Team (Late st Contact Info) Description 11/14/2023 Refill [facility] [address] [place] [address] Kenzie Verde NP [address] [place] [address] Social History Tobacco Use Types Packs/Day Years [...] 01/27/2025 1:45 PM EST Office Visit [facility] MEDICINE [address] [place] [address] Kenzie Verde NP [address] [place] [address] documented as of this encounter Visit Diagnoses Not on filedocumented in this encounter Additional Health Concerns Assessment Noted Time PHQ-9 Depression Total Score: 0 01/14/20 1:14 PM EDT documented as of this encounter Care Teams Water Registrar Relationship Specialty Start Date End Date Kenzie Verde NP [address] [place] [address] PCP - General Family Medicine 01/13/23 documented as of this encounter
--- OUTSIDE RECORDS SUMMARY | 2025-01-26 11:17 | XMS_ITS | Clinical Summary ---
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 Nonreactive Nonreactive [facility] Comment:Antibodies to HCV no t detected; does not exclude early acuteHCV infection. Blood Venous blood specimen / Unknown 01/13/2023 2:08 PM EDT 01/13/2023 4:09 PM EDT us Jarred Cole MD LAB BLOOD ORDERABLES Final Resul t [facility] [address] [place] [phone] [phone] from Last 3 Months or Most Recently Relevant to Health Maintenance [facility] [employer] Supervisor Relationship Specialty Start Date End Date Kenzie Verde NP [address] [place] [address] PCP - General Family Medicine 01/13/23
[2025-01-26 11:48] VITALS: BP 141/93; PULSE 108; RESP 16; O2SAT 98
--- NOTE | 2025-01-26 12:15 | ED_ITS ---
HPI - Extremity Injury (Lower) General Chief Complaint: Extremity Injury, Lower Stated Complaint: foot pain Time Seen by Provider: 01/26/25 11:10 Source: patient Mode of arrival: ambulatory Limitations: no limitations History of Present Illness ED Provider: HPI Narrative: 39-year-old male, recently started on lisinopril, presenting with recurrent inflammation of left foot he feels that likely started with starting on lisinopril and then starting a new job he was seen here before for an arm issue and that was worked up, and started developing redness on the lateral part of h is left foot with no fevers or chills no leg swelling. He states this is a recurrent thing now every few weeks lisinopril as the only new medication for his blood pressure. No history of gout. No trauma Related Data Previous Rx's ?Medication ?Instructions ?Recorded hydrochlorothiazide 25 mg tablet 25 mg PO DAILY #30 ta bs 10/06/22 omeprazole 40 mg capsule,delayed 40 mg PO DAILY #30 ca ps 10/06/22 release ibuprofen 600 mg tablet 600 mg PO Q6H PRN pain #20 t abs 01/01/23 methocarbamol 750 mg tablet 750 mg PO TID PRN muscle s pasm #12 01/01/23 tabs amlodipine 5 mg tablet 5 mg PO DAILY #30 tabs 01/26 prednisone 20 mg tablet 40 mg (2 x 20 mg) PO DAILY 4 days 01/26/25 #8 tabs Allergies Allergy/AdvReac Type Severity Reaction Status Date / Time Crustaceans Allergy Unknown EYES GET Uncoded 01/22/25 11:37 RED raisins Allergy Rash Uncoded 01/26/25 09:43 Review of Systems Constitutional: Constitutional: Reports as per HPI [facility] Social History Social History Alcohol intake: never Smoked in Last 30 Days: No Use of substances other than those prescribed or required for medical reasons: No Advance Directives: No Advance Directives Information Provided: Yes Physical Exam Exam: Exam: There is minimal swelling of the lateral dorsal left foot with distal pulses posterior tibial and dorsalis pedis intact Some tenderness along the peroneus longus and brevis and along the in the insertion to the bone Ankle is not swollen, Achilles tendon is intact No tenderness along the plantar aspect No lacerations no drainage no subcutaneous emphysema palpated Patient alert and oriented x4, ambulatory, overall well-appearing Vital Signs: Vital Signs: Last Vital Signs Temp 97.8 F 01/26/25 09:42 Pulse 108 H 01/26/25 11:48 Resp 16 01/26/25 11:48 BP 141/93 H 01/26/25 11:48 Pulse Ox 98 01/26/25 11:48 O2 Del Method Room Air 01/26/25 11:48 BMI result Body Mass Index 35.0 Medications Administered Discontinued Medications Generic Name Dose Route Start Last Admin Trade Name Xavi PRN Reason Stop Dose Admin Prednisone 60 mg 01/26/25 11:35 01/26/25 11:47 Prednisone 20 Mg Tablet PO 01/26/25 11:36 60 mg ONCE ONE Administration Medical Decision Making Medical Decision Making [facility] Narrative: 12:18 PM 01/26/2025 (Dr. Greg Lucia): Patient has what appears to be enthesopathy either due to the fact that he is wearing different type of shoes at work but it seems that this became a recurrent issue after he was started on lisinopril, lisinopril can actually exacerbate gouty attacks which can present with no tendinopathy, this does not appear to be infectious a specifically because it is also recurrent, I am going to recommend that he switch over from lisinopril to a calcium channel kg which can actually be beneficial in gout, I will start him on steroids just for the next few days to get the inflammation down, we will have him follow up with the PCP x-ray without subcutaneous emphysema, fractures, pulses are intact, did not feel need for DVT workup such as ultrasound or blood work specifically said blood work a few days ago he does have CKD Differential Diagnosis Differential Diagnoses: The differential diagnosis associated with the presentation includes (Tendinopathy, stress fracture, DVT, arterial insufficiency, septic joint gout flare) Admission/Observation Consideration of admission/observation: Escalation of care including admission/observation considered Lab Data [facility] Lab Attestation statement: I reviewed the patient's lab results. (From recent visit) Independent Interpretation I performed an independent interpretation of an: Plain X-Ray (No subcutaneous emphysema, no fractures, no stress fractures noted) Tests considered The following testing was considered but not selected: DVT study ultrasound left lower extremity, CBC, CRP, chemistry Prescription Management I considered prescription management with: Pain Medication and Antibiotic Chronic Conditions Patient?s care impacted by: Hypertension Discharge Plan Discharge Clinical Impression: Enthesopathy of foot Additional Instructions: I am going to start you on steroids for the next few days 1st dose in the ER, I believe you have inflammation of the tendons this maybe due to the blood pressure medication you taking right now for management of the blood pressure called lisinopril, maybe this information is related to what I would call a mild gouty attack, I am switching over to amlodipine 5 mg daily, but I would like you to follow up with the PCP for re-evaluation and management of the blood pressure, spiking fevers worsening pain come back to the ER otherwise Tylenol 975 mg every 6 hours around the clock for pain, keep your leg elevated, ice the area and the steroids we will kick in and hopefully improve your symptoms in the next 2 days X-rays reassuring Prescriptions: New amlodipine 5 mg tablet 5 mg PO DAILY Qty: 30 0RF prednisone 20 mg tablet 40 mg PO DAILY 4 Days Qty: 8 0RF No Action hydrochlorothiazide 25 mg tablet 25 mg PO DAILY Qty: 30 0RF omeprazole 40 mg capsule,delayed release(DR/EC) 40 mg PO DAILY Qty: 30 0RF ibuprofen 600 mg tablet 600 mg PO Q6H PRN (Reason: pain) Qty: 20 0RF methocarbamol 750 mg tablet 750 mg PO TID PRN (Reason: muscle spasm) Qty: 12 0RF Print Language: Venezuelan
[2025-01-26 12:36] VITALS: BP 141/93; PULSE 108; RESP 16; TEMP -17.7; TEMP 0; O2SAT 98
== END 2025-01-26 12:39 | disposition home or self-care (01) ==
PROVIDERS: Emergency Provider Emergency Medicine
DX: M76.9 Unspecified enthesopathy, lower limb, excluding foot (principal); M79.672 Pain in left foot
CPT/HCPCS: 73630; 99283; 99284

== ENCOUNTER → 2025-01-26 11:35 | Outpatient (BNV) | payer MEDICAID, SELFPAY | PROVIDERS: Emergency Provider Emergency Medicine; Visit Provider Radiology Diagnostic Radiology | DX: R22.42 Localized swelling, mass and lump, left lower limb (principal) | CPT/HCPCS: 73630 ==